=== PATIENT | female | born 1990 | race Caucasian/White ===

== ENCOUNTER 2017-09-03 16:00 | Outpatient (CLI) | payer OTHER, SELFPAY ==
[2017-09-03 16:12] VITALS: BMI 30.1
[2017-09-03 17:05] LABS: Absolute Lymphocyte Count 0.98 X10^3/ul (0.83-4.51); Absolute Neutrophil Count 12.3 X10^3/uL (2.0-7.7); Basophil# 0.01 X10^3/uL; Basophil% 0.1 % (0-1); Eosinophil# 0.01 X10^3/uL; Eosinophils% 0.1 % (0-5); Hematocrit 37.4 % (37-47); Hemoglobin 12.5 g/dl (12.0-15.0); Lymphocyte # 0.98 X10^3/ul (4.0); Mean Corp Hgb Conc 33.4 g/gl (32-36); Mean Corpuscular Hgb 29.4 pg (27.0-32.0); Mean Platelet Vol. 8.7 fl (6.2-12.0); Monocyte# 0.76 X10^3/uL; Monocyte% 5.4 % (0-10); Neutrophil # 12.31 X10^3/uL (2.7-7.7); Neutrophil % 87.2 % (47-70); Platelet Count 214 K/mm3 (150-450); RBC Distribution Width CV 12.8 % (11.6-14.6); Red Blood Count 4.25 M/mm3 (4.2-5.4); White Blood Count 14.1 K/mm3 (4.4-11.0)
[2017-09-03 17:08] LABS: POSITIVE COUNT NO; POSITIVE DIFFERENTIAL NO; POSITIVE MORPHOLOGY NO
[2017-09-03 17:31] LABS: ALB/GLOB Ratio 0.7 RATIO (0.9-2.4); AST(SGOT) 30 U/L (15-37); Alanine Aminotransfer ALT/SGPT 32 U/L (13-56); Albumin, Serum 2.7 g/dL (3.2-5.0); Alkaline Phosphatase 65 U/L (45-117); Anion Gap 9 (5-15); BUN 6 mg/dL (7-18); BUN/Creat Ratio 10.5 RATIO (10-20); Calcium,Total 8.7 mg/dL (8.5-10.1); Chloride 106 mmol/L (98-107); Creatinine, Serum 0.57 mg/dL (0.55-1.02); EST Glomerular Filtration Rate 135 mL/min (>60); Est Glom Filt Rate - Afr Amer 164 mL/min (>60); Estimated Creatinine Clearance 124.81 ml/min; Glucose 83 mg/dL (70-110); Potassium 3.1 mmol/L (3.5-5.1); Protein, Total 6.7 g/dL (6.4-8.2); Sodium Level 140 mmol/L (136-145)
--- NOTE | 2017-09-03 17:32 | CT_ITS ---
STUDY: CT ABDOMEN AND PELVIS WITH CONTRAST REASON FOR EXAM: Female, 26 years old. Right lower quadrant pain, 34 weeks RADIATION DOSAGE (If Supplied By Facility): CTDIvol = ( 11.58 ) mGy, DLP = ( 586.68 ) mGycm TECHNIQUE: Transaxial images were obtained from the dome of the diaphragm to the symphysis pubis without oral contrast. 100 ml of Isovue 300 contrast was administered. Sagittal and coronal images were reconstructed. Individualized dose optimization techniques were used for this CT. COMPARISON: None. FINDINGS: The visualized lung bases are unremarkable. The visualized portions of the heart are within normal limits. Normal liver. Normal gallbladder and extrahepatic biliary system. Normal spleen. Normal pancreas. Normal bilateral adrenal glands. Normal right kidney. Normal left kidney. Normal visualized stomach. Normal small intestine. Normal colon. The appendix does not fill with contrast and it appears to be slightly dilated measuring 8 mm in size. There is no appreciable thickening of the cerna or stranding in the adjacent fat however the possibility of early changes of acute appendicitis cannot be excluded Normal abdominal aorta. Normal inferior vena cava. Normal retroperitoneum. The uterus is enlarged demonstrating intrauterine gestation with fetus in breech presentation.. The placenta is anterior and fundal to the left of the midline. The bladder is compressed and the bowel is displaced laterally and superiorly Normal abdominal wall. Normal osseous structures. CT/Abdomen/Pelvis WITH Contrast IMPRESSION: Findings which may be consistent with early changes of acute appendicitis in association with third trimester . Clinical correlation is recommended N.B. : The above information has been verbally conveyed by Fercho Amin MD to Dr. Latesha Leary, Referring Physician, on 09/03/2017 20:45:54 (ET). Electronically Signed: Fercho Amin MD at 20:46 EST , Service support , N.B. : The above information has been verbally conveyed by Fercho Amin MD to Dr. Latesha Leary, Referring Physician, on 09/03/2017 20:45:54 (ET).
--- NOTE | 2017-09-03 17:37 | PCM.HP.OB ---
History Date of Admission: 09/03/17 Gestational age: 35 History of this : 26-year-old 3 para 1 at 34+ gestational weeks presents from walk-in clinic today. 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 She complains of not feeling well since early this morning. Pain more on her right side and mid abdomen. She has had intermittent epigastric pain and indigestion but that is not particularly worse today. She has not eaten since breakfast. She denies any diarrhea or constipation or emesis. She has some mild nausea. She states she would eat. She reports good movement but does have some pain with movement. She feels some irregular mild cramping but no regular strong contractions. She denies any gross vaginal bleeding or leaking of fluid. She denies any fevers or chills. Family has recently had respiratory infections but that seems to have improved before this started. Obstetrical history 2 previous vaginal deliveries, current uncomplicated to date per patient Allergies No Known Allergies Allergy (Verified 11/29/15 22:20) Review of Systems Constitutional: Reports: Malaise. Denies: Chills, Fever Eyes: Reports: Vision Change - some scotoma. Denies: Blurred vision HEENT: Denies: Head Aches Cardiovascular: Denies: Chest Pain, Chest Pressure, Edema Respiratory: Denies: Cough Genitourinary: Denies: Dysuria, Frequency, Hematuria Skin: Denies: Rash, Skin Changes Physical Exam General: Alert, Cooperative, No apparent distress Cardiovascular: Regular rate Lungs: Normal air movement Abdomen: Soft, Non-Distended, Gravid, Guarding - moderate right mid abdomen, Appropriate for Gestational Age, - - no fundal tenderness Extremities:: No edema Estimated gestational size: Appropriate for gestational size Presentation: Cephalic Cervix Dilation (cm): 0 - posterior, medium consistency Station: -3 Effacement (%): 40 Assessment/Plan NST- normal baseline, moderate variability, + accels, no Decelerations, Reactive, category 1, irreg. mild ctxs a/p 26 YOF # 34 + weeks w/ acute onset abdominal pain and elevated WBC d/ wher recommend CT for r/o appendicitis. R/B/A to radiations exposure reviewed, risk of ruptured appendix is greater than risk of radiation. She consents and agrees. NST reactive. No evidence of chorio, no pain w/ palpation of fundus other than on right. No signif. rebound but some guarding. No evidence of PTL. No flank pain c/w kidney stone. Will send UA.
[2017-09-03] MEDS: 0.9% Saline Lock 10 ML Syringe IV ×3 (17:50→23:03)
--- NOTE | 2017-09-03 17:52 | HP.PCM_ITS ---
History Date of Admission: 09/03/17 Gestational age: 34 History of this : 26-year-old 3 para 1 at 34+ gestational weeks presents from walk-in clinic today. She gets her metrical care from hand hide stretcher and plans to deliver at birthing center. She complains of not feeling well since early this morning. Pain more on her right side and mid abdomen. She has had intermittent epigastric pain and indigestion but that is not particularly worse today. She has not eaten since breakfast. She denies any diarrhea or constipation or emesis. She has some mild nausea. She states she would eat. She reports good movement but does have some pain with movement. She feels some irregular mild cramping but no regular strong contractions. She denies any gross vaginal bleeding or leaking of fluid. She denies any fevers or chills. Family has recently had respiratory infections but that seems to have improved before this started. Obstetrical history 2 previous vaginal deliveries, current uncomplicated to date per patient Allergies No Known Allergies Allergy (Verified 11/29/15 22:20) Review of Systems Constitutional: Reports: Malaise. Denies: Chills, Fever Eyes: Reports: Vision Change - some scotoma. Denies: Blurred vision HEENT: Denies: Head Aches Cardiovascular: Denies: Chest Pain, Chest Pressure, Edema Respiratory: Denies: Cough Genitourinary: Denies: Dysuria, Frequency, Hematuria Skin: Denies: Rash, Skin Changes Physical Exam General: Alert, Cooperative, No apparent distress Cardiovascular: Regular rate Lungs: Normal air movement Abdomen: Soft, Non-Distended, Gravid, Guarding - moderate right mid abdomen, Appropriate for Gestational Age, - - no fundal tenderness Extremities:: No edema Estimated gestational size: Appropriate for gestational size Presentation: Cephalic Cervix Dilation (cm): 0 - posterior, medium consistency Station: -3 Effacement (%): 40 Assessment/Plan NST- normal baseline, moderate variability, + accels, no Decelerations, Reactive , category 1, irreg. mild ctxs a/p 26 YOF # 34 + weeks w/ acute onset abdominal pain and elevated WBC d/ wher recommend CT for r/o appendicitis. R/B/A to radiations exposure reviewed, risk of ruptured appendix is greater than risk of radiation. She consents and agrees. NST reactive. No evidence of chorio, no pain w/ palpation of fundus other than on right. No signif. rebound but some guarding. No evidence of PTL. No flank pain c/w kidney stone. Will send UA.
[2017-09-03] MEDS: Nalbuphine 10 MG/ML Ampul IV (20:09)
[2017-09-03] MEDS: HYDROmorphone 1 MG/ML Syringe IV (23:03)
[2017-09-04] VITALS (14 sets, daily range): BP systolic 91–131; BP diastolic 53–83; PULSE 61–98; RESP 16–20; TEMP 36.6–37.2; O2SAT 96–100
[2017-09-04 01:21] LABS: Bacteria 0 SEEN /hpf (None Seen); Mucous, Urine 0 SEEN /hpf (<or=2+); Red Blood Cells-Urine 0 SEEN /hpf (0-5)
[2017-09-04 01:23] LABS: Color, Urine Yellow (Yellow); Glucose, Dipstick Normal (Normal); Ketone-Dipstick 150 mg/dl (Negative); Leukocyte Esterase-Dipstick 25 /ul (Negative); Nitrite-Dipstick Negative (Negative); Occult Blood-Urine 10 /ul (Negative); Protein-Dipstick 15 mg/dl (Negative); Specific Gravity, Urine 1.015 (1.002-1.030); Urine Bilirubin Dipstick Negative (Negative); Urine Clarity Clear (Clear); Urine Urobilinogen Normal (Normal)
[2017-09-04 01:28] LABS: Squamous Epithelial Cells - UA 0-5 SEEN /hpf (5-10); White Blood Cells 0-5 SEEN /hpf (0-5)
[2017-09-04] MEDS: 0.9% Saline Lock 10 ML Syringe IV ×4 (02:57→22:12)
[2017-09-04] MEDS: HYDROmorphone 1 MG/ML Syringe IV ×2 (02:57→09:59)
[2017-09-04 05:13] LABS: Absolute Lymphocyte Count 1.68 X10^3/ul (0.83-4.51); Absolute Neutrophil Count 9.6 X10^3/uL (2.0-7.7); Basophil# 0.02 X10^3/uL; Basophil% 0.2 % (0-1); Eosinophil# 0.04 X10^3/uL; Eosinophils% 0.3 % (0-5); Hematocrit 36.6 % (37-47); Hemoglobin 12.4 g/dl (12.0-15.0); Lymphocyte # 1.68 X10^3/ul (4.0); Lymphocyte % 13.6 % (19-41); Mean Corp Hgb Conc 33.9 g/gl (32-36); Mean Corpuscular Volume 88.4 fL (81-99); Mean Platelet Vol. 8.7 fl (6.2-12.0); Monocyte# 0.93 X10^3/uL; Monocyte% 7.5 % (0-10); Neutrophil # 9.61 X10^3/uL (2.7-7.7); Neutrophil % 78.1 % (47-70); Platelet Count 231 K/mm3 (150-450); RBC Distribution Width CV 12.8 % (11.6-14.6); RBC Distribution Width SD 39.6 fl (35.1-43.9); Red Blood Count 4.14 M/mm3 (4.2-5.4); White Blood Count 12.3 K/mm3 (4.4-11.0)
[2017-09-04 05:14] LABS: POSITIVE COUNT NO; POSITIVE DIFFERENTIAL NO; POSITIVE MORPHOLOGY NO
[2017-09-04] MEDS: Acetaminophen 500 MG Tablet 1000 MG PO (08:04)
[2017-09-04] MEDS: Lactated Ringers 1,000 ML 500 ML IV (08:30)
--- NOTE | 2017-09-04 08:41 | PCM.PN.OB ---
Subjective: pain better than last night but asking for more IV pain meds. Some nausea after jello. no VB/LOF. no increased ctxs. No diarrhea. Last BM yesterday normal. - Physical Exam General: Alert, Cooperative, No apparent distress Abdomen: Soft, Non-Distended, Gravid, Guarding - right mid abdomen, mild rebound, no guarding on left, Appropriate for Gestational Age Extremities: No edema Weight: 77.1 kg Body Mass Index (BMI) 30.1 Laboratory Tests Past 24 Hrs 09/03/17 09/03/17 09/04/17 16:45 16:45 01:05 WBC 14.1 H RBC 4.25 Hgb 12.5 Hct 37.4 MCV 88.0 MCH 29.4 MCHC 33.4 RDW 12.8 RDW Differential 41.0 Plt Count 214 MPV 8.7 Immature Gran % (Auto) 0.200 Neut % (Auto) 87.2 H Lymph % (Auto) 7.0 L [place] % (Auto) 5.4 Eos % (Auto) 0.1 Baso % (Auto) 0.1 Absolute Neuts (auto) 12.3 H Absolute Lymphs (auto) 0.98 Total Counted Not Reportable Sodium 140 Potassium 3.1 L Chloride 106 Carbon Dioxide 25.0 Anion Gap 9 BUN 6 L Creatinine 0.57 Estim Creat Clear Calc 124.81 Est GFR (MDRD) Af Amer 164 Est GFR (MDRD) Non-Af 135 BUN/Creatinine Ratio 10.5 Glucose 83 Calcium 8.7 Total Bilirubin 0.40 AST 30 ALT 32 Alkaline Phosphatase 65 Total Protein 6.7 Albumin 2.7 L Globulin 4.0 Albumin/Globulin Ratio 0.7 L Urine Color Yellow Urine Clarity Clear Urine pH 6.0 Ur Specific [place] 1.015 Urine Protein 15 H Urine Glucose (UA) Normal Urine Ketones 150 H Urine Occult Blood 10 H Urine Nitrite Negative Urine Bilirubin Negative Urine Urobilinogen Normal Ur Leukocyte Esterase 25 H Urine RBC 0 SEEN Urine WBC 0-5 SEEN Ur Squamous Epith Cells 0-5 SEEN Urine Bacteria 0 SEEN Urine Mucus 0 SEEN 09/04/17 04:50 WBC 12.3 H RBC 4.14 L Hgb 12.4 Hct 36.6 L MCV 88.4 MCH 30.0 MCHC 33.9 RDW 12.8 RDW Differential 39.6 Plt Count 231 MPV 8.7 Immature Gran % (Auto) 0.300 Neut % (Auto) 78.1 H Lymph % (Auto) 13.6 L [place] % (Auto) 7.5 Eos % (Auto) 0.3 Baso % (Auto) 0.2 Absolute Neuts (auto) 9.6 H Absolute Lymphs (auto) 1.68 Total Counted Not Reportable Sodium Potassium Chloride Carbon Dioxide Anion Gap BUN Creatinine Estim Creat Clear Calc Est GFR (MDRD) Af Amer Est GFR (MDRD) Non-Af BUN/Creatinine Ratio Glucose Calcium Total Bilirubin AST ALT Alkaline Phosphatase Total Protein Albumin Globulin Albumin/Globulin Ratio Urine Color Urine Clarity Urine pH Ur Specific [place] Urine Protein Urine Glucose (UA) Urine Ketones Urine Occult Blood Urine Nitrite Urine Bilirubin Urine Urobilinogen Ur Leukocyte Esterase Urine RBC Urine WBC Ur Squamous Epith Cells Urine Bacteria Urine Mucus Assessment/Plan HD#2 acute abdominal pain D/w her and that at this point WBC down, but her exam remains worrisome. CT does not show appendicitis. Will continue to monitor. Dr. Molina consulted and is concerned about patient and agrees w/ concerned observation. Does not feel clinically surgery is indicated at this point. Will give IVF bolus. Cont. IV pain meds d/w her may need LLOYD scoring for after delivery.
--- NOTE | 2017-09-04 10:11 | NURSING ---
pt requested pain med, she asked if she could only get half the dose? half dose given. pt resting in bed.
[2017-09-04] MEDS: Lactated Ringers 1,000 ML 75 ML IV (11:00)
--- NOTE | 2017-09-04 14:20 | NURSING ---
This nurse spoke to earlier around 1300, he stated he would be over to see the pt in approx an 1 to 1.5 hours. He was made aware pt is still having pain, she rates the pain a 7 when walking or when the baby moves. He is aware pt is receiving dilaudid for pain control. He states to make pt NPO. Pt given update on new orders and on the phone call. Sx called at this time and states the sx is scheduled for 1600.
--- NOTE | 2017-09-04 14:40 | CON.PCM_ITS ---
Problem List (1) RLQ abdominal pain Status: Acute Reason for Consult Date of Consultation: 09/04/17 History of Present Illness: The patient is a 26 year old F with a one day hostory of right lower quadrant pain. She is currently 34 weeks gestation. SHe noted vague abdominal pain which is now localized to the right lateral abdomen. She presented to [facility]. WBC count was 14K CT scan demonstrated a mildly distended appendix without stranding - equivocal. SHe has had persistent pain overnight. Her WBC count this am is 12K. Throught the day , her pain has persisted or worsened Past Medical History Allergies No Known Allergies Allergy (Verified 11/29/15 22:20) Home Medications: Ambulatory Orders Medication Instructions Recorded No Known/Unobtainable [No Known 04/24/17 Home Medications] Surgical History: no surgical history Smoking Status: Never smoker Review of Systems Constitutional: Reports: Anorexia. Denies: Chills, Fever, Weight Change HEENT: Denies: Head Aches, Sinus Congestion, Sinus Drainage Cardiovascular: Denies: Chest Pain, Palpitations Respiratory: Denies: Cough, Shortness of breath at rest, Sputum production Gastrointestinal: Reports: Abdominal Pain. Denies: Nausea, Vomiting Genitourinary: Denies: Dysuria Musculoskeletal: Denies: Joint Pain, Joint Tenderness Skin: Denies: Rash, Wounds Neurological: Denies: Numbness, Tingling, Focal weakness Psychiatric: Denies: Anxiety, Depression, Homicidal Ideations, Suicidal Ideations Hematologic/ Lymphatic: Denies: Easy Bruising, Easy Bleeding Patient Problems: Active and Suspected Problems RLQ abdominal pain (Acute) - Physical Exam General: Alert, Oriented x3, No apparent distress Lungs: Clear to auscultation, Normal air movement Cardiovascular: Regular rate, No murmurs Abdomen: Bowel Sounds Present, Soft, Non Tender - right paramedian,, Gravid Vital Signs Temp Pulse Resp BP Pulse Ox 98.4 F 88 18 120/60 100 09/04/17 14:24 09/04/17 14:24 09/04/17 14:24 09/04/17 14:24 09/04/17 14:24 Oxygen Delivery Method Room Air Weight: 77.1 kg Body Mass Index (BMI) 30.1 Intake and Output for Last 24 Hours 09/02/17 09/03/17 09/04/17 23:59 23:59 23:59 Output Total 200 / 200 Balance -200 / -200 Laboratory Tests Past 24 Hrs 09/03/17 09/03/17 09/04/17 16:45 16:45 01:05 WBC 14.1 H RBC 4.25 Hgb 12.5 Hct 37.4 MCV 88.0 MCH 29.4 MCHC 33.4 RDW 12.8 RDW Differential 41.0 Plt Count 214 MPV 8.7 Immature Gran % (Auto) 0.200 Neut % (Auto) 87.2 H Lymph % (Auto) 7.0 L [place] % (Auto) 5.4 Eos % (Auto) 0.1 Baso % (Auto) 0.1 Absolute Neuts (auto) 12.3 H Absolute Lymphs (auto) 0.98 Total Counted Not Reportable Sodium 140 Potassium 3.1 L Chloride 106 Carbon Dioxide 25.0 Anion Gap 9 BUN 6 L Creatinine 0.57 Estim Creat Clear Calc 124.81 Est GFR (MDRD) Af Amer 164 Est GFR (MDRD) Non-Af 135 BUN/Creatinine Ratio 10.5 Glucose 83 Calcium 8.7 Total Bilirubin 0.40 AST 30 ALT 32 Alkaline Phosphatase 65 Total Protein 6.7 Albumin 2.7 L Globulin 4.0 Albumin/Globulin Ratio 0.7 L Urine Color Yellow Urine Clarity Clear Urine pH 6.0 Ur Specific [place] 1.015 Urine Protein 15 H Urine Glucose (UA) Normal Urine Ketones 150 H Urine Occult Blood 10 H Urine Nitrite Negative Urine Bilirubin Negative Urine Urobilinogen Normal Ur Leukocyte Esterase 25 H Urine RBC 0 SEEN Urine WBC 0-5 SEEN Ur Squamous Epith Cells 0-5 SEEN Urine Bacteria 0 SEEN Urine Mucus 0 SEEN 09/04/17 04:50 WBC 12.3 H RBC 4.14 L Hgb 12.4 Hct 36.6 L MCV 88.4 MCH 30.0 MCHC 33.9 RDW 12.8 RDW Differential 39.6 Plt Count 231 MPV 8.7 Immature Gran % (Auto) 0.300 Neut % (Auto) 78.1 H Lymph % (Auto) 13.6 L [place] % (Auto) 7.5 Eos % (Auto) 0.3 Baso % (Auto) 0.2 Absolute Neuts (auto) 9.6 H Absolute Lymphs (auto) 1.68 Total Counted Not Reportable Sodium Potassium Chloride Carbon Dioxide Anion Gap BUN Creatinine Estim Creat Clear Calc Est GFR (MDRD) Af Amer Est GFR (MDRD) Non-Af BUN/Creatinine Ratio Glucose Calcium Total Bilirubin AST ALT Alkaline Phosphatase Total Protein Albumin Globulin Albumin/Globulin Ratio Urine Color Urine Clarity Urine pH Ur Specific [place] Urine Protein Urine Glucose (UA) Urine Ketones Urine Occult Blood Urine Nitrite Urine Bilirubin Urine Urobilinogen Ur Leukocyte Esterase Urine RBC Urine WBC Ur Squamous Epith Cells Urine Bacteria Urine Mucus Assessment/Plan Active and Suspected Problems RLQ abdominal pain (Acute) RLQ pain, - Ct scan equivocal, pain not improving - likely appendicitis I plan to perform a laparoscopic appendectomy. THe patient understands the risks, benefits, possible complications including labor and consents to surgery. I spoke with Dr. Leary and Dr. Garcia - will plan for monitoring. Demetrian ordered.
--- NOTE | 2017-09-04 15:11 | NURSING ---
1500 Huddle done with surgery personnel, anesthesia, and nursing staff. We discussed POC for preop, sx and post op. updated on comments from jorge and the request from anesthesia that the OB be rn corrections and ready if a stat c section is needed, Gibran stated they will be available. Henrietta is the OB rn corrections and she has been updated per
--- NOTE | 2017-09-04 15:39 | NURSING ---
in the room and has discussed sx with the pt. Anesthesia has been in and has discussed past hx and allergies and sx with the pt
--- NOTE | 2017-09-04 16:00 | APP_PTH ---
PATIENT: AMADOU PAYTON LOC: [facility] U#:[id number] AGE/SX: 26/F ROOM: RE09/03/[address]: Dr. Latesha Leary MD : 1990 BED: DIS: 09/05/2017 SPEC #: [id number] RECD: 09/05/17 08:52 STATUS: GALLITO EVERETT #: [id number] BRITTANY: 09/04/17 16:[address]: Umre Molina DEPT: SURGICAL PATHOLOGY RECD BY: Umer Garg ENTERED: 09/05/17 09:28 SP TYPE: APPENDIX OTHR DR: DO Dr. Latesha Jerez MD Tissues: Appendix, NOS Procedures: Surgery Specimen Level III HEADER OPERATION: Laparoscopic appendectomy PRE-OP DIAGNOSIS: Acute appendicitis TISSUE SUBMITTED: Appendix MICROSCOPIC DIAGNOSIS Appendix, appendectomy: Acute appendicitis. Acute serositis. AM:bart 09/06/17 MICROSCOPIC DESCRIPTION Slides are reviewed. GROSS DESCRIPTION Received is one container labeled with the patient's name and designated appendix. The specimen consists of an appendix measuring 6 cm in length and up to 1 cm in average diameter. The attached periappendiceal adipose tissue measures up to 2 cm in width. The serosa is congested. No obvious perforation is identified. The lumen is pinpoint. No fecalith is identified. Learning Development Specialist sections are submitted in one cassette. / SJ:rg 09/05/17 TC:2 CPT: 25243
[2017-09-04] MEDS: Bupivacaine Mpf 0.5% 30 ML VIAL (16:18)
--- NOTE | 2017-09-04 16:43 | PCM.OPRPT ---
Problem List (1) RLQ abdominal pain Status: Acute Report of Operation Date of Procedure: 09/04/17 Pre-Operative Diagnosis: acute appendicitis, 34 weeks gravid Post-Operative Diagnosis: acute appendicitis, 34 weeks gravid Surgery/Procedure Performed:: laparoscopic appendectomy forging die sinker: None Anesthesiologist: Tee Baumann - [id number] Specimen's removed: appendix Estimated Blood Loss (mL): 10 Fluids Replaced: 1100 Description of Procedure: The patient was brought to the operating suite. Sign in was performed verifying patient, site, procedure, position, and DVT prophylaxis with SCDs. Patient received 4.5 g Zosyn for presumed appendicitis. heart tones were monitored before, during and throughout the case by nursing from OB. Obstetricians were rapidly available if necessary. Following induction of general anesthetic. The patients abdomen was prepped and draped in the usual fashion. Timeout was performed verifying patient, site, position. the patient was positioned on a roll to avoid pressure on her inferior vena cava by the uterus and to facilitate exposure of her appendix Local anesthetic was injected below the umbilicus. Incision made and dissection carried down to the umbilical root fascia. 2 stay sutures were placed. Incision made in the fascia, the peritoneum entered under direct visualization. A 10 mm Rubio trocar was inserted and secured with the stay sutures. Pneumoperitoneum to 10 mmHg was insufflated. Visual inspection revealed a large gravid uterus as expected. The cecum was displaced superiorly and the patient was noted to have early appendicitis with no signs of purulent fluid. 2 5mm ports were placed in the right lateral area position. A window was made between the base the mesoappendix and the base of the appendix transected with the intestinal load Endo YESSI stapler at the base of the cecum. The mesoappendix was transected with a Harmonic scalpel. The appendix was placed in an Endobag and removed through the umbilical port site. An 0 PDS [id number] suture was placed around the umbilical port site defect. Pneumoperitoneum was reestablished. The appendiceal area was checked for hemostasis. 5 ports were removed under direct visualization with no signs of bleeding. Pneumoperitoneum was released. The Rubio trocar was removed. The umbilical fascial suture was secured area did skin was closed with interrupted 4-0 Monocryl subcuticular sutures. Steri-Strips and bandages were applied. The patient was brought to recovery room in stable condition. - Admit VTE Documentation VTE Present on Admission: No
--- NOTE | 2017-09-04 16:46 | OP.PCM_ITS ---
Problem List (1) RLQ abdominal pain Status: Acute Report of Operation Date of Procedure: 09/04/17 Pre-Operative Diagnosis: acute appendicitis, 34 weeks gravid Post-Operative Diagnosis: acute appendicitis, 34 weeks gravid Surgery/Procedure Performed:: laparoscopic appendectomy sales representative jewelry: None Anesthesiologist: Tee Baumann - [id number] Specimen's removed: appendix Estimated Blood Loss (mL): 10 Fluids Replaced: 1100 Description of Procedure: The patient was brought to the operating suite. Sign in was performed verifying patient, site, procedure, position, and DVT prophylaxis with SCDs. Patient received 4.5 g Zosyn for presumed appendicitis. heart tones were monitored before, during and throughout the case by nursing from OB. Obstetricians were rapidly available if necessary. Following induction of general anesthetic. The patient?s abdomen was prepped and draped in the usual fashion. Timeout was performed verifying patient, site , position. the patient was positioned on a roll to avoid pressure on her inferior vena cava by the uterus and to facilitate exposure of her appendix Local anesthetic was injected below the umbilicus. Incision made and dissection carried down to the umbilical root fascia. 2 stay sutures were placed. Incision made in the fascia, the peritoneum entered under direct visualization. A 10 mm Rubio trocar was inserted and secured with the stay sutures. Pneumoperitoneum to 10 mmHg was insufflated. Visual inspection revealed a large gravid uterus as expected. The cecum was displaced superiorly and the patient was noted to have early appendicitis with no signs of purulent fluid. 2 5mm ports were placed in the right lateral area position. A window was made between the base the mesoappendix and the base of the appendix transected with the intestinal load Endo YESSI stapler at the base of the cecum. The mesoappendix was transected with a Harmonic scalpel. The appendix was placed in an Endobag and removed through the umbilical port site. An 0 PDS figure-of- eight suture was placed around the umbilical port site defect. Pneumoperitoneum was reestablished. The appendiceal area was checked for hemostasis. 5 ports were removed under direct visualization with no signs of bleeding. Pneumoperitoneum was released. The Rubio trocar was removed. The umbilical fascial suture was secured area did skin was closed with interrupted 4 -0 Monocryl subcuticular sutures. Steri-Strips and bandages were applied. The patient was brought to recovery room in stable condition. - Admit VTE Documentation VTE Present on Admission: No
--- NOTE | 2017-09-04 18:58 | NURSING ---
Addendum entered by Morena Toro 09/04/17 19:07: strips 4 and 5 saved but not achieved. Original Note: Pt is back on the floor from sx and pacu. fhr was monitored throughout sx and was documented on strip. this strip saved not achieved, this strip is labeled #4. Pt was on O2 when brought back to the floor, pt taken off the O2 around 1830, but was put back on after a couple of minutes to help improve variablility of fhr. Pt is alert and oriented, taking ice chips.
--- NOTE | 2017-09-04 19:52 | NURSING ---
1949 This nurse spoke to new orders clarified, orders reviewed with oncoming nurse Layton SAEED
[2017-09-04] MEDS: HYDROmorphone HCL 0.5 MG/0.5 ML SYRINGE IV (20:02)
[2017-09-04] MEDS: Piperacil/Tazobactam 3.375 GM/50 ML ML IV (22:14)
[2017-09-05 01:19] VITALS: BP 97/52; PULSE 75; RESP 18; TEMP 37.1; O2SAT 95
[2017-09-05] MEDS: oxyCODONE 5 MG Tablet PO ×3 (01:26→10:43)
[2017-09-05 06:12] VITALS: BP 113/61; PULSE 70; RESP 18; TEMP 36.6; O2SAT 96
[2017-09-05] MEDS: Piperacil/Tazobactam 3.375 GM/50 ML ML IV (06:20)
[2017-09-05] MEDS: 0.9% Saline Lock 10 ML Syringe IV (06:21)
[2017-09-05 06:45] LABS: Absolute Lymphocyte Count 1.66 X10^3/ul (0.83-4.51); Basophil# 0.02 X10^3/uL; Basophil% 0.2 % (0-1); Eosinophil# 0.06 X10^3/uL; Eosinophils% 0.6 % (0-5); Hematocrit 34.4 % (37-47); Hemoglobin 11.7 g/dl (12.0-15.0); Lymphocyte # 1.66 X10^3/ul (4.0); Lymphocyte % 17.3 % (19-41); Mean Corpuscular Hgb 30.5 pg (27.0-32.0); Mean Corpuscular Volume 89.6 fL (81-99); Mean Platelet Vol. 8.5 fl (6.2-12.0); Monocyte# 0.84 X10^3/uL; Monocyte% 8.8 % (0-10); Neutrophil % 72.9 % (47-70); Platelet Count 214 K/mm3 (150-450); RBC Distribution Width CV 12.8 % (11.6-14.6); RBC Distribution Width SD 40.8 fl (35.1-43.9); Red Blood Count 3.84 M/mm3 (4.2-5.4); White Blood Count 9.6 K/mm3 (4.4-11.0)
[2017-09-05 06:50] LABS: POSITIVE COUNT NO; POSITIVE DIFFERENTIAL NO; POSITIVE MORPHOLOGY NO
[2017-09-05 06:56] LABS: Anion Gap 9 (5-15); BUN 5 mg/dL (7-18); BUN/Creat Ratio 8.8 RATIO (10-20); Calcium,Total 8.4 mg/dL (8.5-10.1); Chloride 109 mmol/L (98-107); Creatinine, Serum 0.57 mg/dL (0.55-1.02); EST Glomerular Filtration Rate 137 mL/min (>60); Est Glom Filt Rate - Afr Amer 166 mL/min (>60); Estimated Creatinine Clearance 124.81 ml/min; Glucose 86 mg/dL (70-110); Potassium 3.5 mmol/L (3.5-5.1); Sodium Level 143 mmol/L (136-145)
--- NOTE | 2017-09-05 08:06 | PCM.DC.APPY ---
Discharge Diet: Light diet - advance as tolerated Discharge Activity: May Not Drive - for 3-5 days or while taking narcotic pain meds. May shower in (days): 1 Suture Line Care: Avoid Pulling/Pushing, Avoid Pinching/Bending Additional Dressing/Incision Instructions:: Keep dressing clean and dry. Change or remove dressing in 2 days. Leave steri strips for 1 week. May protect with a gauze bandaid. Medications to take at Discharge Oxycodone [Oxyir] 5 mg PO Q4H PRN PRN 5 Days #12 tab 09/05/17 Allergies/Adverse Reactions: Allergies No Known Allergies Allergy (Verified 11/29/15 22:20) The following prescriptions were given: Oxycodone [Oxyir] 5 mg PO Q4H PRN PRN 5 Days #12 tab PRN Reason: Severe Pain (6-05/14) Primary Care Physician: Stuart Dupont MD [Primary Care Provider] - Please Follow Up With: Umer Molina MD - [phone] When: Call to make a follow up appointment in 1 week.
[2017-09-05 08:14] VITALS: BP 114/63; PULSE 86; RESP 18; TEMP 36.8; O2SAT 95
--- NOTE | 2017-09-05 11:33 | PCM.DC.SUM ---
Discharge Date and Diagnosis - Problem List Patient Problems: Active and Suspected Problems RLQ abdominal pain (Acute) Date of Admission: 09/03/17 Date of Discharge: 09/05/17 - Primary Discharge Diagnosis Active and Suspected Problems RLQ abdominal pain (Acute) appendicitis Hospital Course and Treatment Operations: appendectomy Summary of Care Provided: The patient is a 26 year old F with a one-day history of abdominal pain radiating to her right lower or right lateral abdominal area. The patient is 34 weeks gravid. She underwent a CT scan, which was equivocal for appendicitis. We elected to follow her clinically. Her symptoms failed to improve so she was taken urgently for laparoscopic appendectomy. The patient was found to have early appendicitis. Appendectomy was uneventful. heart tones were monitored throughout the case and were stable. The patient did well and was ready for discharge on postoperative day 1. Discharge Diet: Light diet - advance as tolerated Discharge Activity: May Not Drive - for 3-5 days or while taking narcotic pain meds. May shower in (days): 1 Suture Line Care: Avoid Pulling/Pushing, Avoid Pinching/Bending Additional Dressing/Incision Instructions:: Keep dressing clean and dry. Change or remove dressing in 2 days. Leave steri strips for 1 week. May protect with a gauze bandaid. Home Medications: Medications to take at Discharge Oxycodone [Oxyir] 5 mg PO Q4H PRN PRN 5 Days #12 tab 09/05/17 Following Prescrptions Were Given to Patient: Oxycodone [Oxyir] 5 mg PO Q4H PRN PRN 5 Days #12 tab PRN Reason: Severe Pain (6-10/10) Primary Care Physician: Stuart Dupont MD [Primary Care Provider] - Please Follow Up With: Umer Molina MD - [phone] When: Call to make a follow up appointment in 1 week. Meaningful Use Info Meaningful Use Diagnoses (Choose all that apply): None applicable
--- NOTE | 2017-09-05 12:04 | PCM.PN.OB ---
Patient Problems: Active and Suspected Problems RLQ abdominal pain (Acute) Subjective: No N/V. Yanira. regular diet. No regular ctxs. Good FM. No VB/LOF. Pain improving. - Physical Exam General: Alert, Cooperative, No apparent distress Abdomen: Soft, Non-Distended, Tender - appropriately Extremities: Edema - 1+ Skin: Incision - bandages clean, dry adn intact Vital Signs Temp Pulse Resp BP Pulse Ox 98.2 F 86 18 114/63 95 09/05/17 08:14 09/05/17 08:14 09/05/17 08:14 09/05/17 08:14 09/05/17 08:14 Oxygen Flow Rate 4 Oxygen Delivery Method Room Air Weight: 77.1 kg Body Mass Index (BMI) 30.1 Intake and Output for Last 24 Hours 09/03/17 09/04/17 09/05/17 23:59 23:59 23:59 Intake Total 3068 / 3068 250 / 250 Output Total 900 / 900 1250 / 1250 Balance 2168 / 2168 -1000 / -1000 Microbiology Past 72 Hours 09/04/17 01:05 Urine Culture - Final Urine, Clean Catch Mixed Gram Positive Organisms Laboratory Tests Past 24 Hrs 09/03/17 09/05/17 09/05/17 17:50 06:30 06:30 WBC 9.6 RBC 3.84 L Hgb 11.7 L Hct 34.4 L MCV 89.6 MCH 30.5 MCHC 34.0 RDW 12.8 RDW Differential 40.8 Plt Count 214 MPV 8.5 Immature Gran % (Auto) 0.200 Neut % (Auto) 72.9 H Lymph % (Auto) 17.3 L Kidder % (Auto) 8.8 Eos % (Auto) 0.6 Baso % (Auto) 0.2 Absolute Neuts (auto) 7.0 Absolute Lymphs (auto) 1.66 Total Counted Not Reportable Sodium 143 Potassium 3.5 Chloride 109 H Carbon Dioxide 25.0 Anion Gap 9 BUN 5 L Creatinine 0.57 Estim Creat Clear Calc 124.81 Est GFR (MDRD) Af Amer 166 Est GFR (MDRD) Non-Af 137 BUN/Creatinine Ratio 8.8 L Glucose 86 Calcium 8.4 L Blood Type A POSITIVE Antibody Screen NEGATIVE Assessment/Plan Active and Suspected Problems RLQ abdominal pain (Acute) A/p POD#1 34 weeks, s/p appendectomy, doing well d/c home kick counts PTL precautions.
--- NOTE | 2017-09-05 12:34 | NURSING ---
Awaiting lunch and will leave via wheelchair with .
== END 2017-09-05 13:25 | disposition home or self-care (01) ==
LOC: WPOUT 16:12 → WP 16:12
PROVIDERS: Surgery; Family Provider Family Medicine; PCP Family Medicine; Visit Provider Obstetrics & Gynecology
PROC: 0DTJ4ZZ Resection of Appendix, Percutaneous Endoscopic Approach (ICD-10-PCS; CPT 44970; principal; 2017-09-04 15:40)
DX: O26.893 Other specified pregnancy related conditions, third trimester (principal); K35.3 Acute appendicitis with localized peritonitis; Z3A.34 34 weeks gestation of pregnancy
CPT/HCPCS: 44970; 96361; 96365; 96366 ×2; 96375 ×2; 36415; 59025; 59050; 74177; 80048; 80053; 81001; 85025; 86850; 86900; 87086; 87088; 88304; 99218; J7120; Q9967; A4216; G0378; J2405; J3490

== ENCOUNTER 2021-05-30 23:15 | Inpatient (IN) | payer SELFPAY, OTHER ==
[2021-05-30 23:37] VITALS: TEMP 36.6
[2021-05-30 23:43] VITALS: O2SAT 82
[2021-05-30 23:44] VITALS: BP 116/82; PULSE 89
[2021-05-30 23:46] VITALS: PULSE 93; O2SAT 96
[2021-05-30 23:49] VITALS: BMI 32.5
[2021-05-30 23:51] VITALS: PULSE 86; O2SAT 97
[2021-05-30] MEDS: Lactated Ringers 1,000 ML 200 ML IV (23:55)
[2021-05-30 23:56] VITALS: PULSE 83; O2SAT 99
[2021-05-31] VITALS (17 sets, daily range): BP systolic 113–142; BP diastolic 62–88; PULSE 65–91; RESP 16; TEMP 36.4–36.6; O2SAT 95–98
[2021-05-31 00:12] LABS: Absolute Lymphocyte Count 1.83 X10^3/uL (0.83-4.51); Absolute Neutrophil Count 10.1 X10^3/uL (2.0-7.7); Basophil# 0.03 X10^3/uL; Basophil% 0.2 % (0-1); Eosinophil# 0.06 X10^3/uL; Eosinophils% 0.5 % (0-5); Hematocrit 42.7 % (37-47); Hemoglobin 14.3 g/dL (12.0-15.0); Lymphocyte # 1.83 X10^3/ul (0.83-4.51); Lymphocyte % 14.3 % (19-41); Mean Corp Hgb Conc 33.5 g/dL (32-36); Mean Corpuscular Hgb 28.9 pg (27.0-32.0); Mean Corpuscular Volume 86.3 fL (81-99); Mean Platelet Vol. 9.3 fl (6.2-12.0); Monocyte# 0.73 X10^3/uL; Monocyte% 5.7 % (0-10); NRBC Flagged by Analyzer 0 % (0-5); Neutrophil # 10.08 X10^3/uL (2.7-7.7); Neutrophil % 78.9 % (47-70); Platelet Count 246 K/mm3 (150-450); RBC Distribution Width CV 12.5 % (11.6-14.6); RBC Distribution Width SD 39.1 fl (35.1-43.9); Red Blood Count 4.95 M/mm3 (4.2-5.4); White Blood Count 12.8 K/mm3 (4.4-11.0)
--- NOTE | 2021-05-31 00:25 | HP.PCM.OB_ITS ---
HPI - General General Date of Admission: 05/30/21 HPI Narrative AMADOU PAYTON, is a 30 F who presents IAL with prolonged ROM. has been managed by a CPM in the [facility]. She denies any vaginal bleeding and admits good movement, clear loss of fluid. Maternal Data Information LISHA Calculator Estimated Delivery Date Method Current WG Current Estimate 06/01/21 Manual 39w 6d based on lm p and US PFSH PFSH Home Medications aloe vera mg PO DAILY 05/31/21 [History Last Taken 05/30/21] cholecalciferol (vitamin D3) [Vitamin D3] 25 mcg PO DAILY 05/31/21 [History Last Taken 05/30/21] lactobacillus combo no.6 [Probiotic Complex] cell PO 05/31/21 [History Last Taken 05/30/21] omega-3 fatty acids [[place] 3 Fish Oil] 500 mg PO DAILY 05/31/21 [History Last Taken 05/30/21] [id number] [] tab PO DAILY 05/31/21 [History Last Taken 05/30/21] Allergy/AdvReac Type Severity Reaction Status Date / Time No Known Allergies Allergy Verified 05/31/21 00:22 Social History Smoking Status: Never smoker Visit Details Expected Delivery Route/Plan OB Flowsheet Initial Weight: Not Recorded Date -?-?-?-?-?-?-?-?-?-?-?-?- EGA Weight BP Urine Prot -?-?-?-?-?-?-?-?-?-?-?-?- Glucose FHR FuHt Pres Dilation -?-?-?-?-?-?-?-?-?-?-?-?- Effaced St Visit Note 05/30/21 -?-?-?-?-?-?-?-?-?-?-?-?- 39w 5d 183 lb 6.4 oz 116/82 -?-?-?-?-?-?-?-?-?-?-?-?- -?-?-?-?-?-?-?-?-?-?-?-?- NST FHR Rate Baby A Baseline: 140 Variability:: Moderate Accelerations:: 15 x 15 Decelerations:: None NST Reactive:: Yes FHR Category:: Category I Uterine Activity:: q3-5 ROS Constitutional Constitutional: Reports systems reviewed and no addt'l complaints, except as documented ENT HEENT: Reports systems reviewed and no addt'l complaints, except as documented Cardiovascular Cardiovascular: Reports systems reviewed and no addt'l complaints, except as documented Respiratory/Chest Respiratory/Chest: Reports systems reviewed and no addt'l complaints, except as documented Gastrointestinal Gastrointestinal: Reports systems reviewed and no addt'l complaints, except as documented and nausea; Denies abdominal pain Genitourinary Genitourinary: Reports systems reviewed and no addt'l complaints, except as documented, contractions Details: present and frequency (regular ) and movement Details: present Musculoskeletal Musculoskeletal: Reports systems reviewed and no addt'l complaints, except as documented Integumentary Integumentary: Reports as per HPI Neurologic Neurologic: Reports systems reviewed and no addt'l complaints, except as documented Endocrine Endocrinology: Reports systems reviewed and no addt'l complaints, except as documented Vital Signs Vital Signs Vital Signs: 05/30/21 23:37 05/30/21 23:43 05/30/21 23:44 Temperature 97.8 F Temperature Source Temporal Pulse Rate 89 Blood Pressure 116/82 H BP Systolic 116 BP Diastolic 82 Pulse Ox 82 05/30/21 23:46 05/30/21 23:51 05/30/21 23:56 Temperature Temperature Source Pulse Rate 93 86 83 Blood Pressure BP Systolic BP Diastolic Pulse Ox 96 97 99 Weight Weight: 183 lb 6.4 oz Body Mass Index (BMI) 32.5 Physical Exam Const alert, oriented x3 and healthy appearing Constitutional Narrative: uncomfortable with contractions HEENT normocephalic and moist oral mucous membranes Head and Scalp: atraumatic Neck full ROM, no lymphadenopathy, supple and thyroid normal General: trachea midline Thyroid: thyroid normal Lymph Lymphatic: no lymphadenopathy noted Chest inspection of chest normal Resp normal respiratory effort Cardio regular rate GI normal to inspection, nondistended, normoactive bowel sounds, soft to palpation and non-tender Inspection: gravid external exam normal Bimanual Exam - Vag & Uterus: uterus non-tender Manual OB Exam: estimated gestational size appropriate, presentation cephalic, dilated, effaced and station Extremity normal to inspection General Extremity: Negative for edema Skin no rashes or lesions noted Neuro deep tendon reflexes 2+ bilaterally Motor Exam: strength 5/5 throughout and clonus absent Psych mental status grossly normal Labs Labs Labs: Blood Type A POSITIVE Antibody Screen NEGATIVE Hct 42.7 % (37-47) Hgb 14.3 g/dL (12.0-15.0) Syphilis Total Ab Pending Rubella IgG Antibody Pending Hep Bs Antigen Pending HIV 1&2 Antibody Pending Group B Strep DNA Pending Assessment & Plan (1) : COMMENT: Cal previous home births, care by Wendy at [facility] (2) Prolonged rupture of membranes, greater than 24 hours, delivered, current hospitalization: PLAN: Admit in active labor for bag ruptured and if no cervical change in 1 hour we will start Pitocin. Penicillin started for prolonged rupture membranes and unknown GBS status. Rapid GBS sent.
[2021-05-31] MEDS: Lactated Ringers 500 ML 999 ML IV (00:34)
[2021-05-31] MEDS: Oxytocin 30 units/NS 500 ml 30 UNITS/500 ML IV.SOLN 334 UNITS IV (00:52)
--- NOTE | 2021-05-31 00:59 | EX.PCM.OBRPT ---
Maternal Data Information LISHA Calculator Estimated Delivery Date Method Current Current Estimate 06/01/21 Manual 39w 6d based on lmp and US Vaginal Delivery Operative Information Pre-Operative Diagnosis: IAL Post-Operative Diagnosis: same Surgery / Procedure Performed: Spontaneous Vaginal Delivery Type of Anesthesia: Epidural Special Medications: none Estimated Blood Loss: 100 Fluids Replaced: crystalloid Findings Description of Procedure: Patient began pushing and delivered the head in the [ROCHELLE] presentation. The head was delivered atraumatically [and a loose nuchal cord ?1 was identified and the delivered through without complication]. The anterior and posterior shoulders delivered without complication followed by the rest of the infant and the infant was placed on the maternal abdomen. Delayed cord clamping was employed for approximately 60 seconds. Cord was clamped and cut and gentle traction was applied to the cord and the placenta delivered spontaneously immediately following it was noted to be intact with three-vessel cord. The perineum and vagina were inspected and [noted to have no laceration]. EBL was [100 cc]. Patient and tolerated delivery well. Presentation: ROCHELLE Amniotic Membrane Rupture Type: Artificial Amniotic Fluid Description: Clear Placental Delivery Description: Spontaneous Placenta Disposition: [facility] Cord Vessel Description: 3 Vessels Cord Entanglement: None Delayed Cord Clamping: Yes Post Vaginal Delivery Medications Given After Delivery: IV Pitocin Episiotomy Description: None Laceration: None Complication Complications: None Procedures Urinary/Genital [id number]: [id number] Vaginal Delivery+ Care([facility])
--- NOTE | 2021-05-31 01:01 | PCM.DC ---
Discharge Instructions Diet Discharge Diet: No restrictions Activity Discharge Activity: Return to Normal Activity, May Not Drive (while taking narcotic pain medications.) and May Shower May resume sexual activity in: 4-6 weeks Dressing / Incision Call your doctor if your incision/area has: Continuous Slow Oozing, Sudden Increased Bleeding, Increased Pain/ Swelling, Increased Redness and Foul Smelling Discharge Follow Up Care Please Follow Up With: Jeanna Maria MD When: Call [phone] to make an appointment with your doctor in 6 weeks. If you had elevated blood pressure or 4th degree laceration, you will need to be seen in 2 weeks. Test Results: Test results from this visit will be discussed in further detail at your follow-up appointment, if applicable. Discharge Plan Admission Admit Date/Time: 05/30/21 23:15 Primary Reason for Your Visit: vaginal delivery Attending Provider: Jeanna Maria Primary Care Provider: Stuart Dupont Discharge Orders/Prescriptions Prescriptions: No Action 1 mg Tablet PO DAILY RF: 0 cholecalciferol (vitamin D3) [Vitamin D3] 25 mcg (1,000 unit) Capsule 25 mcg PO DAILY RF: 0 [place] 3 Fish Oil Capsule 500 mg PO DAILY RF: 0 aloe vera 500 mg Capsule PO DAILY RF: 0 Probiotic Complex 4 billion cell Tablet PO RF: 0 Referrals / Follow Up: Stuart Dupont DO [Primary Care Provider] - Disposition Disposition (needs filled in before D/C Order can be placed): Home, Self Care
[2021-05-31 01:09] LABS: Rubella IgG Reactive (Nonreactive); Syphilis Antibodies Non-reactive
[2021-05-31 01:32] LABS: HIV - WCH Non-Reactive (Nonreactive); Hepatitis B Surface Antigen Non-Reactive (Nonreactive); Hepatitis C Antibody Non-Reactive (Nonreactive)
[2021-05-31] MEDS: Naproxen 500 MG Tablet PO (02:19)
[2021-05-31 02:55] LABS: Group B Strep DNA By PCR Negative (Negative)
[2021-05-31 02:56] LABS: Internal Control PASS; Probe Check PASS; Specimen Processing Control PASS
--- NOTE | 2021-05-31 13:38 | NURSING ---
pt discharged to [facility] birthing center to be back under calender operator care.
== END 2021-05-31 12:05 | disposition home or self-care (01) | DRG 807 ==
PROVIDERS: Admitting Provider Obstetrics & Gynecology; PCP Family Medicine; Visit Provider Obstetrics & Gynecology
DX: O42.12 Full-term premature rupture of membranes, onset of labor more than 24 hours following rupture (principal); Z37.0 Single live birth; Z3A.39 39 weeks gestation of pregnancy; O69.81X0 Labor and delivery complicated by cord around neck, without compression, not applicable or unspecified
CPT/HCPCS: 59025; 59050; 85025; 86703; 86762; 86780; 86803; 86850; 86900; 86901; 87081; 87340; 87426; 87653; 99218; J7120; G0378

== ENCOUNTER 2023-06-08 13:25 | Emergency (ER) | payer OTHER, SELFPAY ==
[2023-06-08 13:26] VITALS: BP 124/74; PULSE 103; RESP 18; TEMP 36.6; O2SAT 100; BMI 29.9
--- NOTE | 2023-06-08 13:54 | US_ITS ---
EXAM: US , TRANSVAGINAL CLINICAL INDICATION: vaginal bleeding TECHNIQUE: Real-time endovaginal obstetrical ultrasound of the maternal pelvis and a first trimester with image documentation. Transvaginal imaging was used for better evaluation of the fetus and adnexa. COMPARISON: No relevant prior studies available. FINDINGS: UTERUS/CERVIX: Uterus measures 8.9 x 5.6 x 5.2 cm with endometrial thickness of 16 mm. No evidence of intra or extrauterine gestational sac. Prominent parametrial vessels noted which may represent pelvic venous insufficiency. OVARIES: Normal. No mass. The right ovary measures 3.0 x 3.0 x 2.2 cm. The left ovary measures 3.1 x 2.6 x 2.2 cm. FREE FLUID: No free fluid. US/Transvaginal w/Preg US IMPRESSION: 1. No evidence of intra or extrauterine gestational sac. 2. Recommend follow-up ultrasound of the pelvis in 7-10 days if HCG titers are positive in order to further evaluate for viable intrauterine gestation, ectopic or miscarriage. Electronically Signed: Jb Russell MD at 15:44 EDT ,
--- NOTE | 2023-06-08 14:05 | ED.VIS.FEGU ---
HPI <Dr. Michael Keita DO - Last Filed: 06/08/23 14:06> HPI - Female History of Present Illness Chief Complaint: Vag Bld, Preg <DANIEL Zee - Last Filed: 06/08/23 16:04> HPI - Female Narrative Narrative: Patient is a 32-year-old female who is a 5 para 4, 0, who presents to the emergency department for vaginal bleeding. Patient believes she is 7 to 8 weeks . Her last menstrual cycle was 8 weeks ago however she is irregular. She states that she did take a test and it was positive. She complains of brown vaginal discharge for the last 3 weeks, the last 3 days, she states it was bright red and getting more heavy, she is also having more cramping. She is here for evaluation. She denies any back pain, nausea or vomiting. [facility] <Dr. Michael Keita DO - Last Filed: 06/08/23 14:06> [facility] Medical History (Updated 06/08/23 @ 16:01 by DANIEL Zee) Depression Fatigue Gestational diabetes Gluten intolerance Hypotension Irregular heart rate Prolonged rupture of membranes, greater than 24 hours, delivered, current hospitalization SOB (shortness of breath) Vaginal delivery Home Medications aloe vera 500 mg capsule mg PO DAILY 05/31/21 [History Last Taken 05/30/21] cholecalciferol (vitamin D3) 25 mcg (1,000 unit) capsule (Vitamin D3) 25 mcg PO DAILY 05/31/21 [History Last Taken 05/30/21] lactobacillus combo no.6 4 billion cell tablet cell PO 05/31/21 [History Last Taken 05/30/21] omega-3 fatty acids 500 mg PO DAILY 05/31/21 [History Last Taken 05/30/21] Allergy/AdvReac Type Severity Reaction Status Date / Time No Known Allergies Allergy Verified 06/08/23 13:26 Surgical History Hx of appendectomy Social History Smoking Status: Never smoker ROS <DANIEL Zee - Last Filed: 06/08/23 16:04> ROS ED ROS Narrative Constitutional: Negative for fever, chills, weight loss, weakness Eyes: Negative for vision loss, vision change, double vision ENT: Negative for any sore throat, ear pain, congestion Cardiovascular: Negative for any chest pain, tightness, palpitations Respiratory: Negative for any cough, sputum production, hemoptysis, dyspnea, dyspnea on exertion, orthopnea Gastrointestinal: Negative for any abdominal pain, nausea, vomiting, diarrhea, constipation, blood in stool, blood in vomit : Negative for any urinary frequency, dysuria, retention, blood in urine. Positive vaginal bleeding, lower abdominal cramps Muscle skeletal: Negative for any muscle joint pain, stiffness, myalgias, arthralgias, neck pain, back pain Neurological: Negative for any headache, syncope, numbness or tingling, dizziness Skin: Negative for any rashes, lumps, itching, abrasions, lacerations Psychiatric: Negative for any depression, anxiety, stress, suicidal ideation, homicidal ideation Hematologic: Negative for any easy bruising, excessive bruising, easy bleeding Allergies: Negative for any eczema, hives, rash EXAM <Dr. Michael Keita DO - Last Filed: 06/08/23 14:06> Physical Exam Const Vital Signs: 06/08/23 13:26 Temperature 97.8 F Temperature Source Temporal Pulse Rate 103 H Respiratory Rate 18 Blood Pressure 124/74 H Blood Pressure Mean 90 Pulse Ox 100 Oxygen Delivery Method Room Air <DANIEL Zee - Last Filed: 06/08/23 16:04> Physical Exam Narrative Exam Narrative: Vital signs reviewed. HEET: Head normocephalic atraumatic, TMs clear bilaterally. Posterior pharynx is clear, moist mucous membranes. Nares clear bilaterally. Neck: Supple with no lymphadenopathy or tenderness. No signs of meningismus, negative jolt sign. Cardiac: Regular rate and rhythm no murmurs gallops or rubs, equal peripheral pulses bilaterally. Respiratory: Lungs clear to auscultation bilaterally. No chest tenderness. Abdomen: Soft, nontender, nondistended. No abdominal bruit or pulsatile masses. No hepatosplenomegaly Extremities: No peripheral edema, no signs of gross trauma or deformity. Active full range of motion of all extremities. Neuro: Cranial nerves II through XII intact, no focal neurological deficits. Skin: Clean dry and intact with no rash, purpura, petechiae, vesicles or pustules. Backs/flank: No CVA tenderness, no midline spinal tenderness, no deformity. Psych: Normal mood and affect. No SI, HI or acute psychosis. Const Vital Signs: 06/08/23 13:26 Temperature 97.8 F Temperature Source Temporal Pulse Rate 103 H Respiratory Rate 18 Blood Pressure 124/74 H Blood Pressure Mean 90 Pulse Ox 100 Oxygen Delivery Method Room Air Positive well nourished and well developed General Appearance ED: well developed MDM <Dr. Michael Keita, DO - Last Filed: 06/08/23 14:06> MDM MDM Narrative Medical decision making narrative: I have personally performed a face to face assessment of the patient and have reviewed the BRYAN Note. I performed a substantive portion of the visit including all aspects of the following. My urrutia findings include: History is [patient presents to the emergency department with vaginal bleeding and . Patient states that she took a test 3 days ago that was positive. Patient had been having small amount of spotting for about 2 weeks prior to that. Over the last day or 2 she had increased bleeding where she bled through a pad and a half yesterday. She is having small amount of cramping. She is not passing any clots. She is G5, P4. Patient has history of polycystic ovarian disease.] Exam is [HEENT-PERRLA, EOMI. Cranial nerves II through XII grossly intact. TMs clear. Mucous membranes moist. No adenopathy. Cardiovascular-regular rate and rhythm without murmur or ectopy Lungs-clear to auscultation, chest wall stable without crepitus or subcu emphysema Abdomen-normoactive bowel sounds, soft, nontender, no rebound or rigidity, no peritoneal signs. Extremities-intact ?4, normal range of motion, normal pulses, atraumatic] Medical Decison Making [ ] Other additions or changes: [None] Lab Data Labs: Laboratory Results - last 24 hr 06/08/23 06/08/23 14:37 14:59 WBC 6.8 RBC 4.84 Hgb 14.3 Hct 42.8 MCV 88.4 MCH 29.5 MCHC 33.4 RDW Std Deviation 38.5 RDW Coeff of Burak 12.0 Plt Count 274 MPV 8.8 Immature Gran % (Auto) 0.400 Neut % (Auto) 68.5 Lymph % (Auto) 22.4 [place] % (Auto) 7.2 Eos % (Auto) 0.9 Baso % (Auto) 0.6 Absolute Neuts (auto) 4.7 Absolute Lymphs (auto) 1.53 Nucleated RBC % 0 Sodium 140 Potassium 3.6 Chloride 108 H Carbon Dioxide 28.0 Anion Gap 4 L BUN 9 Creatinine 0.84 Estim Creat Clear Calc 80.27 Est GFR (MDRD) Af Amer 101 Est GFR (MDRD) Non-Af 83 BUN/Creatinine Ratio 10.7 Glucose 87 Calcium 9.3 HCG, Quant 65547 H Urine Color Yellow Urine Clarity Clear Urine pH 7.0 Ur Specific [place] 1.010 Urine Protein Negative Urine Glucose (UA) Normal Urine Ketones Negative Urine Occult Blood 250 H Urine Nitrite Negative Urine Bilirubin Negative Urine Urobilinogen Normal Ur Leukocyte Esterase 25 H Urine RBC 0 SEEN Urine WBC 0 SEEN Ur Squamous Epith Cells 0 SEEN Urine Bacteria 0 SEEN Urine Mucus 0 SEEN Radiography Diagnostic Testing: Clinical Impression(s) from Imaging Studies Obstetrics Ultrasound 06/08/23 13:54 IMPRESSION: 1. No evidence of intra or extrauterine gestational sac. 2. Recommend follow-up ultrasound of the pelvis in 7-10 days if HCG titers are positive in order to further evaluate for viable intrauterine gestation, ectopic or miscarriage. Electronically Signed: Jb Russell MD at 15:44 EDT , <DANIEL Zee - Last Filed: 06/08/23 16:04> [facility] Lab Data Attestation: I reviewed the patient's lab results. Labs: Laboratory Results - last 24 hr 06/08/23 06/08/23 14:37 14:59 WBC 6.8 RBC 4.84 Hgb 14.3 Hct 42.8 MCV 88.4 MCH 29.5 MCHC 33.4 RDW Std Deviation 38.5 RDW Coeff of Burak 12.0 Plt Count 274 MPV 8.8 Immature Gran % (Auto) 0.400 Neut % (Auto) 68.5 Lymph % (Auto) 22.4 [place] % (Auto) 7.2 Eos % (Auto) 0.9 Baso % (Auto) 0.6 Absolute Neuts (auto) 4.7 Absolute Lymphs (auto) 1.53 Nucleated RBC % 0 Sodium 140 Potassium 3.6 Chloride 108 H Carbon Dioxide 28.0 Anion Gap 4 L BUN 9 Creatinine 0.84 Estim Creat Clear Calc 80.27 Est GFR (MDRD) Af Amer 101 Est GFR (MDRD) Non-Af 83 BUN/Creatinine Ratio 10.7 Glucose 87 Calcium 9.3 HCG, Quant 62928 H Urine Color Yellow Urine Clarity Clear Urine pH 7.0 Ur Specific [place] 1.010 Urine Protein Negative Urine Glucose (UA) Normal Urine Ketones Negative Urine Occult Blood 250 H Urine Nitrite Negative Urine Bilirubin Negative Urine Urobilinogen Normal Ur Leukocyte Esterase 25 H Urine RBC 0 SEEN Urine WBC 0 SEEN Ur Squamous Epith Cells 0 SEEN Urine Bacteria 0 SEEN Urine Mucus 0 SEEN Radiography Diagnostic Testing: Clinical Impression(s) from Imaging Studies Obstetrics Ultrasound 06/08/23 13:54 IMPRESSION: 1. No evidence of intra or extrauterine gestational sac. 2. Recommend follow-up ultrasound of the pelvis in 7-10 days if HCG titers are positive in order to further evaluate for viable intrauterine gestation, ectopic or miscarriage. Electronically Signed: Jb Russell MD at 15:44 EDT , Treatment and Re-Evaluation Narrative: Patient appears generally well, patient appears nontoxic, vital signs are stable. Presenting to the emergency department for complaints of vaginal bleeding, 7 to 8 weeks . Patient appears to be in no obvious distress, patient is not hemorrhaging. Abdominal exam was unremarkable. Patient will receive some basic labs such as CBC, BMP, hCG quantitative. Patient received a urinalysis concern for any infection. She will receive a transvaginal ultrasound. Frontal diagnosis includes spontaneous , live , dysfunctional uterine bleeding. Patient received IV fluids. Patient remains in no distress. Patient CBC is unremarkable. Patient's chemistries are unremarkable, patient's hCG quant shows 11,473. Patient's transvaginal ultrasound shows no evidence of intra or extrauterine gestational sac. Recommend follow-up ultrasound of the pelvis in 7 to 10 days if hCG titers are positive. Secondary to this finding, I did reach out to [facility] on-call, they recommend that I write for a prescription for repeat hCG quantitative on Saturday, and the patient will follow-up this week. I did speak with the patient regarding this, everyone is in agreement. Patient understands that she needs a follow-up this week. All questions were answered, patient stable for discharge Discharge Plan Triage Chief Complaint: Vag Bld, Preg ED Midlevel Provider: Juan Manuel Downs ED Provider: Michael Keita Dx/Rx/DC Orders Clinical Impression: Abnormal vaginal bleeding, Instructions: ED , New Dx Prescriptions: No Action cholecalciferol (vitamin D3) [Vitamin D3] 25 mcg (1,000 unit) Capsule 25 mcg PO DAILY [place] 3 Fish Oil Capsule 500 mg PO DAILY aloe vera 500 mg Capsule PO DAILY Probiotic Complex 4 billion cell Tablet PO Other Ambulatory Orders: hCG Titer Quant., Serum (Stat) Timeframe: [id number] Facility: [facility] - Location: Laboratory Ordered By: Juan Manuel Downs Primary Care Provider: Stuart Dupont Referrals: Stuart Dupont DO [Primary Care Provider] - Fior Vu DO [Med Staff - Active Staff] - Activity Restrictions/Additional Instructions: Your hCG quant level is 11,473. You need to have this blood drawn again on Saturday, June 10, 2023. And you need to follow-up with [facility] [employer] [facility]. Come here to have your blood drawn. Disposition Disposition: Home, Self Care
[2023-06-08 14:42] LABS: Bacteria 0 SEEN /hpf (None Seen); Mucous, Urine 0 SEEN /hpf (<or=2+); Red Blood Cells-Urine 0 SEEN /hpf (0-5); Squamous Epithelial Cells - UA 0 SEEN /hpf (5-10); White Blood Cells 0 SEEN /hpf (0-5)
[2023-06-08 14:44] LABS: Color, Urine Yellow (Yellow); Glucose, Dipstick Normal (Normal); Ketone-Dipstick Negative (Negative); Leukocyte Esterase-Dipstick 25 /ul (Negative); Nitrite-Dipstick Negative (Negative); Occult Blood-Urine 250 /ul (Negative); Protein-Dipstick Negative (Negative); Urine Bilirubin Dipstick Negative (Negative); Urine Clarity Clear (Clear); Urine Urobilinogen Normal (Normal)
[2023-06-08] MEDS: 0.9% Normal Saline (1000mL) 1,000 ML 1000 ML IV (15:01)
[2023-06-08 15:16] LABS: Absolute Lymphocyte Count 1.53 X10^3/uL (0.83-4.51); Absolute Neutrophil Count 4.7 X10^3/uL (2.0-7.7); Basophil# 0.04 X10^3/uL; Basophil% 0.6 % (0-1); Eosinophil# 0.06 X10^3/uL; Eosinophils% 0.9 % (0-5); Hematocrit 42.8 % (37-47); Hemoglobin 14.3 g/dL (12.0-15.0); Lymphocyte # 1.53 X10^3/ul (0.83-4.51); Lymphocyte % 22.4 % (19-41); Mean Corp Hgb Conc 33.4 g/dL (32-36); Mean Corpuscular Hgb 29.5 pg (27.0-32.0); Mean Corpuscular Volume 88.4 fL (81-99); Mean Platelet Vol. 8.8 fl (6.2-12.0); Monocyte# 0.49 X10^3/uL; Monocyte% 7.2 % (0-10); NRBC Flagged by Analyzer 0 % (0-5); Neutrophil # 4.67 X10^3/uL (2.7-7.7); Neutrophil % 68.5 % (47-70); Platelet Count 274 K/mm3 (150-450); RBC Distribution Width SD 38.5 fl (35.1-43.9); Red Blood Count 4.84 M/mm3 (4.2-5.4); White Blood Count 6.8 K/mm3 (4.4-11.0)
[2023-06-08 15:26] LABS: Anion Gap 4 (5-15); BUN 9 mg/dL (7-18); BUN/Creat Ratio 10.7 RATIO (10-20); Calcium,Total 9.3 mg/dL (8.5-10.1); Chloride 108 mmol/L (98-107); Creatinine, Serum 0.84 mg/dL (0.55-1.02); EST Glomerular Filtration Rate 83 mL/min (>60); Est Glom Filt Rate - Afr Amer 101 mL/min (>60); Estimated Creatinine Clearance 80.27 ml/min; Glucose 87 mg/dL (74-106); Potassium 3.6 mmol/L (3.5-5.1); Sodium Level 140 mmol/L (136-145)
[2023-06-08 15:46] LABS: hCG Titer Quant., Serum 11473 mIU/mL (1-3)
[2023-06-08 16:18] VITALS: BP 121/64; PULSE 64; RESP 14; TEMP 36.4; O2SAT 99
--- NOTE | 2023-06-17 19:36 | PCM.HP.BLA ---
History and Physical Date of Admission: 06/17/23 32-year-old 5 para 4 female presents with follow-up of intermittent vaginal bleeding during the . She denies any abdominal pain or heavy vaginal bleeding. She was seen in the emergency room on 06 08 with an elevated hCG quant and empty uterus. She has been followed by her primary office and had a follow-up ultrasound today that revealed an empty uterus, quant over 20,000, and a left adnexal mass consistent with ectopic . Past medical history: Patient denies any major medical problems Social history: Patient denies any tobacco alcohol or drug use Past surgical history: History of appendectomy. Obstetrical history: 4 full-term vaginal deliveries without complications Review of systems: General: She denies any fevers or chills Heme: She denies any history of prolonged bleeding or easy bruising Cardiac she denies any chest pain or shortness of breath Respiratory: She denies any shortness of breath or cough Physical exam: General: Awake, alert, no acute distress Skin: Warm dry and intact Abdomen: Soft, nondistended, no rebound or guarding, no tenderness, no hernias noted Pelvic ultrasound, hCG levels, reviewed Assessment & Plan Assessment/Plan (1) Ectopic : QUALIFIERS: Location of ectopic : tubal Intrauterine status: without intrauterine Laterality: left Qualified Code(s): O00.102 - Left tubal without intrauterine PLAN: Plan Risk benefits and alternatives to surgical intervention were reviewed with the patient. Discussed with her relative contraindication for methotrexate with her hCG being so elevated and the size of the mass. Patient consented for laparoscopic left salpingectomy and removal of ectopic . Patient consented to blood products as indicated if needed during the surgery. Patient's was present for the discussion. Consent was signed.
--- NOTE | 2023-06-17 20:55 | DCINST_ITS ---
Discharge Instructions Diet Discharge Diet: No restrictions (Increase fluid intake for the next 48 hours.) Activity Return to work on:: 06/24/23 May shower in (days): 1 May resume sexual activity in: 2 weeks Additional Activity Instructions:: Ambulate often the next week after surgery. Nothing in the vagina for 5 days. Dressing / Incision Call your doctor if your incision/area has: Continuous Slow Oozing, Sudden Increased Bleeding, Increased Pain/ Swelling, Increased Redness and Foul Smelling Discharge Call your doctor if you observe: Fever of 101 or Higher Cleanse incision/area with: Soap & Water (your incisions have skin glue, it can get wet. Leave it on 10 days or until it falls off) Follow Up Care Please Follow Up With: Latesha Leary MD When: Call [phone] for follow-up appointment. Test Results: Test results from this visit will be discussed in further detail at your follow- up appointment, if applicable. Discharge Plan Triage Chief Complaint: Vag Bld, Preg ED Midlevel Provider: Juan Manuel Downs ED Provider: Michael Keita Dx/Rx/DC Orders Clinical Impression: Abnormal vaginal bleeding, Prescriptions: No Action cholecalciferol (vitamin D3) [Vitamin D3] 25 mcg (1,000 unit) Capsule 25 mcg PO DAILY [place] 3 Fish Oil Capsule 500 mg PO DAILY aloe vera 500 mg Capsule PO DAILY Probiotic Complex 4 billion cell Tablet PO Primary Care Provider: Stuart Dupont Referrals: Stuart Dupont DO [Primary Care Provider] - Fior Vu DO [Med Staff - Active Staff] - Activity Restrictions/Additional Instructions: Your hCG quant level is 11,473. You need to have this blood drawn again on Saturday, June 10, 2023. And you need to follow-up with [employer]. Come here to have your blood drawn. Disposition Disposition: Home, Self Care Discharge Date/Time: 06/08/23 16:29
--- NOTE | 2023-06-17 21:24 | PCM.OPRPT ---
Problems Associated Problem List Diagnoses (1) Ectopic : Report of Operation Date of Procedure: 06/17/23 Pre-Operative Diagnosis: left tubal ectopic Post-Operative Diagnosis: same Surgery/Procedure Performed:: laparoscopic left salpingectomy Description of Surgical Findings:: normal ovaries, uterus, cervix and vagine. Normal right fallopian tube. Left fallopian tube markedly enlarged and edemtous with clot in ampulla. Otherwise unremarkable peritoneal cavity Surgeon: Latesha Leary retail store clerk: None Type of Anesthesia: General Anesthesiologist: Bala Arias Special Medications: none Specimen's removed: left fallopian tube with ectopic Drains: none Estimated Blood Loss (mL): 5 Fluids Replaced: 800 Description of Procedure: The patient was taken to the operating room where she was prepped and draped in the dorsolithotomy position. A weighted speculum was placed in the vagina and the anterior lip of the cervix was grasped with a tenaculum. The Ebony uterine manipulator was placed and the remainder of the instruments were removed from the vagina. Attention was turned to the abdomen. All port sites were infiltrated with 0.5% Marcaine before skin incisions were made. A 5 mm intraumbilical incision was made. The anterior abdominal wall was tented up with 2 towel clamps while a 5 mm blade less trocar and sleeve were directly inserted. Intraperitoneal placement was confirmed with the laparoscope. The pneumoperitoneum was created and the underlying abdominal contents were intact. The patient was placed in Trendelenburg. Right and left lower quadrant ports were placed under direct visualization lateral to the inferior epigastric vessels. The umbilical port was converted to an 11 mm port. The bowel was swept away and the above findings were noted. The LigaSure device was used to clamp seal and transect the antimesenteric portions of the left fallopian tube to the cornual insertion of the uterus. The tube was amputated from the uterus and the pedicles were all confirmed to be hemostatic. The pedicles were again examined and found to be hemostatic. The specimen was placed in the endoscopic bag and removed for the umbilical incision. The umbilical incision was stretched slightly with a Sinai clamp to accommodate the easy removal of the specimen bag. The lateral ports were removed under direct visualization and no active bleeding was noted. The pneumoperitoneum was released. The fascia in the umbilical incision was closed with 0 Vicryl suture in a running standard fashion. The skin incisions were closed with Monocryl suture in a subcuticular fashion and skin glue. The vaginal instruments were removed and the vaginal sweep was completed by me. The procedure was performed by me with assistance. All sponge and needle counts were correct and the patient was taken to the recovery room in stable condition. Grafts/Implants Used: none Procedure Start Time: 21:04 Procedure Stop Time: 21:25 Complications none Admit VTE Documentation VTE Present on Admission: No VTE Mechan Device Prophylaxis: SCD's VTE Pharm Prophylaxis ordered?: No Reason prophylaxis not ordered:: Procedure Not Indicated
== END 2023-06-08 16:29 | disposition home or self-care (01) ==
PROVIDERS: Nurse Practitioner; Emergency Provider Emergency Medicine; PCP Family Medicine; Visit Provider Emergency Medicine
DX: O20.9 Hemorrhage in early pregnancy, unspecified (principal); Z3A.00 Weeks of gestation of pregnancy not specified
CPT/HCPCS: 76817; 80048; 81001; 84702; 85025; 99282; J7030

== ENCOUNTER → 2023-06-10 | Outpatient (CLI) | payer OTHER, SELFPAY ==
[2023-06-10 11:19] LABS: hCG Titer Quant., Serum 12690 mIU/mL (1-3)
== END | disposition home or self-care (01) ==
LOC: LAB 10:35
PROVIDERS: PCP Family Medicine; Referring Provider Nurse Practitioner; Visit Provider Nurse Practitioner
DX: Z34.90 Encounter for supervision of normal pregnancy, unspecified, unspecified trimester (principal)
CPT/HCPCS: 36415; 84702

== ENCOUNTER 2023-06-17 16:58 | Day surgery (SDC) | payer OTHER, SELFPAY ==
[2023-06-17] VITALS (10 sets, daily range): BP systolic 106–131; BP diastolic 65–93; PULSE 65–89; RESP 15–18; TEMP 36.4–37; O2SAT 96–100; BMI 29.9
--- NOTE | 2023-06-17 17:50 | ED.VIS.FEGU ---
HPI HPI - Female History of Present Illness Chief Complaint: Detail of Chief Complaint: with vaginal bleeding Informant: patient Narrative Narrative: Patient presents to the emergency department with vaginal bleeding and . Patient states that she has been having some bleeding for the last month and lower abdomen pain. She was seen by myself in the emergency department a week ago and had a ultrasound that did not show an intrauterine she had a quant of over 11,000 at that time. Patient was following up and getting repeat quant with the child specialist and today went to [facility] where she was evaluated with ultrasound again and this showed a left adnexal mass that is concerning for ectopic. Dr. Latesha Leary was contacted who called to let me know patient would be coming back to our emergency department as she may need to take patient to the OR. She asked that we obtain repeat quant and basic lab work as well as a type and screen. [facility] Medical History (Updated 06/17/23 @ 19:[address] Michael Keita, ) Depression Fatigue Gestational diabetes Gluten intolerance Hypotension Irregular heart rate Prolonged rupture of membranes, greater than 24 hours, delivered, current hospitalization SOB (shortness of breath) Vaginal delivery Home Medications aloe vera 500 mg capsule mg PO DAILY 05/31/21 [History Last Taken 05/30/21] cholecalciferol (vitamin D3) 25 mcg (1,000 unit) capsule (Vitamin D3) 25 mcg PO DAILY 05/31/21 [History Last Taken 05/30/21] lactobacillus combo no.6 4 billion cell tablet cell PO 05/31/21 [History Last Taken 05/30/21] omega-3 fatty acids 500 mg PO DAILY 05/31/21 [History Last Taken 05/30/21] Allergy/AdvReac Type Severity Reaction Status Date / Time No Known Allergies Allergy Verified 06/17/23 16:59 Surgical History Hx of appendectomy Social History Smoking Status: Never smoker ROS ROS ED Review of Systems ROS Unobtainable: other Constitutional Constitutional ED: Reports lethargy; Denies chills, fever(s), sweats or weight loss Eyes Eyes: Denies blurry vision, change in vision or diplopia ENT ENT ED: Denies rhinorrhea or sore throat Cardiovascular Cardiovascular: Denies chest pain, orthopnea or racing heartbeat Respiratory/Chest Respiratory/Chest: Denies cough, dyspnea, dyspnea on exertion, orthopnea or sputum Gastrointestinal Gastrointestinal: Denies abdominal pain, diarrhea, nausea or vomiting Genitourinary Genitourinary ED: Reports other Details: Vaginal bleeding with ; Denies dysuria, hematuria or urinary frequency Musculoskeletal Musculoskeletal: Denies arthralgias, back pain, myalgias or neck pain Integumentary Denies abscess, Abrasions or rash Neurologic Neurologic: Denies headache(s) or weakness Psychiatric Psychiatric: Denies anxiety, depression or suicidal thoughts Endocrine Endocrinology: Denies polydipsia, polyphagia or polyuria Hematologic/Lymphatic Hematologic/Lymphatic: Denies easy bleeding, easy bruising or lymphadenopathy Allergic/Immunologic Allergic/Immunologic ED: Denies mouth swelling, tongue swelling or urticaria EXAM Physical Exam Const Vital Signs: 06/17/23 16:59 06/17/23 18:58 Temperature 98.6 F Temperature Source Temporal Pulse Rate 77 Respiratory Rate 18 16 Blood Pressure 113/79 Blood Pressure Mean 90 Pulse Ox 100 Oxygen Delivery Method Room Air Positive well nourished and well developed General Appearance ED: well developed and NAD HEENT Reports TM's clear and moist mucous membranes normocephalic and atraumatic; Negative for trauma or tenderness Tympanic Membrane ED: Yes TM's clear Eyes PERRL and EOMs intact bilaterally General Eye ED: Negative for pale conjunctiva or scleral icterus Neck no lymphadenopathy, supple and no JVD General: Negative for tenderness Chest Wall inspection of chest normal and palpation of chest normal Chest: Negative for tenderness Resp normal respiratory effort and clear to auscultation bilaterally Effort and Inspection: Negative for respiratory distress or pain with movement Auscultation: Negative for rhonchi, wheezes or diminished lung sounds Cardio regular rate, regular rhythm, S1 normal heart sound, S2 normal heart sound and no murmurs Peripheral Pulses: pulses 2+ throughout GI normal to inspection, nondistended, normoactive bowel sounds, soft to palpation, non-tender, non-distended and no masses Back/Spine no CVA tenderness and no thoracic nor lumbar tenderness Extremity normal to inspection General Extremety ED: Negative for edema General Extremity: Negative for edema Neuro oriented x3, CN's II-XII intact bilaterally, no sensory deficits noted and gait normal Sensorium / Orientation: awake, alert, oriented to person, oriented to place and oriented to time Motor Exam: strength 5/5 throughout and strength abnormal Psych mental status grossly normal Skin no rashes or lesions noted and no wounds MDM MDM MDM Narrative Medical decision making narrative: Patient presents with ectopic . Dr. Latesha Leary aware of patient's presentation to the emergency department from [facility]. IV line was established. CBC with differential obtained showed a white count of 9.3 with hemoglobin of 14.9 and platelet count of 294. Quantitative hCG pending. Patient being seen in the emergency department by Dr. Latesha Leary who will take patient to operating room for definitive care. Lab Data Attestation: I reviewed the patient's lab results. Labs: Laboratory Results - last 24 hr 06/17/23 18:23 WBC 9.3 RBC 4.98 Hgb 14.9 Hct 43.7 MCV 87.8 MCH 29.9 MCHC 34.1 RDW Std Deviation 37.8 RDW Coeff of Burak 11.8 Plt Count 294 MPV 8.6 Immature Gran % (Auto) 0.200 Neut % (Auto) 67.8 Lymph % (Auto) 25.2 [place] % (Auto) 5.3 Eos % (Auto) 1.1 Baso % (Auto) 0.4 Absolute Neuts (auto) 6.3 Absolute Lymphs (auto) 2.35 Nucleated RBC % 0 Discharge Plan Triage Chief Complaint: ED Provider: Michael Keita Dx/Rx/DC Orders Clinical Impression: Ectopic Prescriptions: No Action cholecalciferol (vitamin D3) [Vitamin D3] 25 mcg (1,000 unit) Capsule 25 mcg PO DAILY [place] 3 Fish Oil Capsule 500 mg PO DAILY aloe vera 500 mg Capsule PO DAILY Probiotic Complex 4 billion cell Tablet PO Primary Care Provider: Stuart Dupont Referrals: Stuart Dupont DO [Primary Care Provider] - Disposition Disposition: Acute Care Hospital [facility]
[2023-06-17] MEDS: 0.9% Normal Saline (1000mL) 1,000 ML 1000 ML IV (18:29)
[2023-06-17 18:51] LABS: Absolute Lymphocyte Count 2.35 X10^3/uL (0.83-4.51); Absolute Neutrophil Count 6.3 X10^3/uL (2.0-7.7); Basophil# 0.04 X10^3/uL; Basophil% 0.4 % (0-1); Eosinophils% 1.1 % (0-5); Hematocrit 43.7 % (37-47); Hemoglobin 14.9 g/dL (12.0-15.0); Lymphocyte # 2.35 X10^3/ul (0.83-4.51); Lymphocyte % 25.2 % (19-41); Mean Corp Hgb Conc 34.1 g/dL (32-36); Mean Corpuscular Hgb 29.9 pg (27.0-32.0); Mean Corpuscular Volume 87.8 fL (81-99); Mean Platelet Vol. 8.6 fl (6.2-12.0); Monocyte# 0.49 X10^3/uL; Monocyte% 5.3 % (0-10); NRBC Flagged by Analyzer 0 % (0-5); Neutrophil # 6.32 X10^3/uL (2.7-7.7); Neutrophil % 67.8 % (47-70); Platelet Count 294 K/mm3 (150-450); RBC Distribution Width CV 11.8 % (11.6-14.6); RBC Distribution Width SD 37.8 fl (35.1-43.9); Red Blood Count 4.98 M/mm3 (4.2-5.4); White Blood Count 9.3 K/mm3 (4.4-11.0)
[2023-06-17 19:55] LABS: hCG Titer Quant., Serum 16181 mIU/mL (1-3)
--- NOTE | 2023-06-17 21:00 | FAL_PTH ---
PATIENT: AMADOU PAYTON [place] [facility] [place][id number] AGE/SX: 32/F ROOM: RE06/17/[address]: Dr. Latesha Leary MD : 1990 BED: DIS: 06/17/2023 SPEC #: [id number] RECD: 06/18/23 08:26 STATUS: GALLITO EVERETT #: [id number] BRITTANY: 06/17/23 21:[address]: Latesha Leary DEPT: SURGICAL PATHOLOGY RECD BY: Filomena Espinoza ENTERED: 06/18/23 10:52 SP TYPE: ECTOPIC OTHR DR: Dr. Stuart Dupont DO Tissues: ECTOPIC PREG Procedures: Surgery Specimen Level IV HEADER OPERATION: Laparoscopic removal ectopic , left salpingectomy PRE-OP DIAGNOSIS: Ectopic TISSUE SUBMITTED: Left tube and ectopic MICROSCOPIC DIAGNOSIS Left fallopian tube, salpingectomy: Intraluminal chorionic villi, decidualized stroma and trophoblastic cells (intratubal ). Benign paratubal cyst. AM:bart 06/19/2023 MICROSCOPIC DESCRIPTION Slides are reviewed. GROSS DESCRIPTION Received in fixative is one container labeled with the patient's name and designated left tube and ectopic. The specimen consists of two irregular fragments of light to dark arias soft tissue ranging in size from 2.0 to 5.0 cm. One segment appears to be a portion of fallopian tube with dilated mid portion. Serial sections reveal hemorrhagic cut surfaces. Invisible Braces Orthodontist sections are submitted in four cassettes. / AM:bart 06/18/2023 TC:5 CPT: 77728
[2023-06-17] MEDS: Bupivacaine Mpf 0.5% 30 ML VIAL (21:20)
[2023-06-17] MEDS: Acetaminophen 500 MG Tablet 1000 MG PO (22:14)
== END 2023-06-17 23:09 | disposition home or self-care (01) ==
LOC: ED 19:20 → SDC 19:39 → MS3 20:08
PROVIDERS: Emergency Provider Emergency Medicine; PCP Family Medicine; Referring Provider Obstetrics & Gynecology; Visit Provider Obstetrics & Gynecology
PROC: 10T24ZZ Resection of Products of Conception, Ectopic, Percutaneous Endoscopic Approach (ICD-10-PCS; CPT 59150; principal; 2023-06-17 20:45)
DX: O00.102 Left tubal pregnancy without intrauterine pregnancy (principal); O34.80 Maternal care for other abnormalities of pelvic organs, unspecified trimester; N83.8 Other noninflammatory disorders of ovary, fallopian tube and broad ligament
CPT/HCPCS: 58661; 00840; 84702; 85025; 86850; 86900; 86901; 88305; 99284; J7030; J2405

== ENCOUNTER → 2023-08-13 | Outpatient (CLI) | payer OTHER, SELFPAY ==
--- OUTSIDE RECORDS SUMMARY | 2023-08-13 07:49 | XMS RPT_ITS | CCD ---
Author Name Unknown Address [address] [place] [address] Organization [facility] Care Team Providers Care Gold Miner Name Role Phone Unavailable Primary Care Provider UnavailKRISTIN Boggs Attending Unavailable KRISTIN MAYES Referring Unavailable NIESHA FARRELL Consulting Unavailable [place] JHA CNM Attending Unavailable ABHIJEET, [place] DINERO Primary Care Unavailable ABHIJEET, [place] DINERO Admitting Unavailable PROVIDER, UNKNOWN Consulting Unavailable Medications Completed/Discontinued Medications Medication Drug Class(es) Dates Sig (Normalized) Sig (Original) Magnesium (1 source) MAGNESIUM ORAL T paty by mouth. 0 Active Problems Problem Classification Problem Date Documented Date Episodic/Chronic Other aftercare (1 source) Surgical follow-up; Translations: [Encounter for follow-up examination after completed treatment for conditions other than malignant neoplasm] 06-21-2023 Episodic Other complications of (3 sources) Inappropriate change in quantitative human chorionic gonadotropin (hCG) in early ; Translations: [Inappropriate change in quantitative human chorionic gonadotropin (hCG) in early ] Onset: 06-17-2023 Episodic Results Test Name Value Interpretation Reference Range Facil ity Vital Signs Date Time Vital Sign Value Performing Clinician Champ villegas 06-21-2023 14:57-0500 Body weight 76.2 kg Kristin Mayes MD Work Phone: [facility] 06-21-2023 14:57-0500 Diastolic blood pressure 72 mm[Hg] Kristin Mayes MD Work Phone: [facility] 06-21-2023 14:57-0500 Systolic blood pressure 122 mm[Hg] Kristin Mayes MD Work Phone: [facility] Encounters Encounter Date Encounter Type Care Provider Facility Start: 06-21-2023 End: 06-21-2023 ambulatory KRISTIN MAYES Facility:[facility] Start: 06-21-2023 End: 06-21-2023 Patient encounter procedure Kristin Mayes MD Work Phone: OB/Gynecology Plan of Treatment Date Care Activity Detail Author Start: 04-05-2023 Influenza vaccination Influenza Vacc ine (#1) [facility] Start: 08-05-2022 Depression Assessment Depression Ass essment [facility] Start: 10-18-2021 HPV Testing HPV Testing [facility] Start: 10-18-2012 Pap Testing Pap Testing [facility] Start: 10-18-2010 Urine microalbumin profile DTa P,Tdap,Td Vaccine (1 - Tdap) [facility] Start: 10-18-2009 Hepatitis C Screening Hepatitis C Sc reening [facility] Start: 10-18-2009 HIV Screening HIV Screening [facility] Start: 04-20-1992 Covid-19 Vaccine (#1) Covid-19 Vacci ne (#1) [facility] Start: 1991 Hepatitis B Vaccine (1 of 3 - 3-dose series) Hepatitis B Vaccine (1 of 3 - 3-dose series) [facility] Payers Date Payer Category Payer Unknown [id number] 2022 Unknown 133 1991 Unknown [id number] Social History Date Type Detail Facility Start: 06-21-2023 Tobacco smoking stat us LAIS Never smoked tobacco [facility] Start: 06-21-2023 Tobacco use and exposure Smoke less tobacco non-user [facility] Start: 06-21-2023 Alcohol intake Lifetime non-d edmond (finding) [facility] Start: 06-21-2023 History of Social function [facility] Start: 06-21-2023 Tobacco use panel [facility] National Score (1-10 0), lower number is lower risk 56 [facility] Start: 1990 Sex Assigned At Not on file [facility] Progress note 06-21-2023 Note Date & Type Note Facility 06-21-2023 Note HNO ID: [id number] Author: Kristin Mayes MD Service: ? Author Type: Physician Type: Progress Notes Filed: 06/21/2023 4:31 PM Note Text: DATE OF SERVICE: 06/21/2023 PROBLEM: Amadou Payton presents for postop visit. SURGERY AND DATE: 06/18/23 laparoscopic left salpingectomy for ectopic PATHOLOGY: Returned consistent with ectopic SUBJECTIVE/INTERVAL HISTORY: Amadou Payton reports that she feels well. No fever or chills. Pain improving daily. Normal appetite. Normal bowel movements and urination. Still having moderate amount of vaginal bleeding about enough to saturate 1 maxi pad a day.. OBJECTIVE: incisions- clean, dry and intact w/ some bruising abd- soft, nondistended, mildly tender ASSESSMENT: postop ectopic PLAN: 1. Discussed results of pathology and implications with patient. 2. Postop restrictions reviewed. Recommend take UPT in 2-3 weeks, if + would recommend quants. She is comfortable w/ plan Kristin Mayes MD [facility] History of Present illness Narrative 06-21-2023 Kristin Mayes MD - 06/21/2023 2:50 PM EST Note Date & Type Note Facility 06-21-2023 History of Presen t illness Narrative DATE OF SERVICE: 06/21/2023 PROBLEM: Amadou Payton presents for postop visit. SURGERY & DATE: 06/18/23 laparoscopic left salpingectomy for ectopic PATHOLOGY: Returned consistent with ectopic SUBJECTIVE/INTERVAL HISTORY: Amadou Payton reports that she feels well. No fever or chills. Pain improving daily. Normal appetite. Normal bowel movements and urination. Still having moderate amount of vaginal bleeding about enough to saturate 1 maxi pad a day.. OBJECTIVE: incisions- clean, dry and intact w/ some bruising abd- soft, nondistended, mildly tender ASSESSMENT: postop ectopic PLAN: 1. Discussed results of pathology and implications with patient. 2. Postop restrictions reviewed. Recommend take UPT in 2-3 weeks, if + would recommend quants. She is comfortable w/ plan Kristin Mayes MD documented in this encounter [facility] Progress note 06-18-2023 Note Date & Type Note Facility 06-18-2023 Note HNO ID: [id number] Author: Kristin Mayes MD Service: ? Author Type: Physician Type: Progress Notes Filed: 06/18/2023 9:17 AM Note Text: Left salpingectomy at [facility] on 06/17/23 for ectopic w/ quant > 20,000. Patient d/[facility] same day. Kristin Mayes MD [facility] Evaluation note Note Date & Type Note Facility documented in this encounter [facility] Summary Purpose Family History No Family History Records FoundNo Family History Records FoundNo Family History Records Found Advance Directives No Advanced Directives Records FoundNo Advanced Directives Records FoundNo Advanced Directives Records Found Additional Source Comments INFORMATION SOURCE (unrecogn ized section and content) DATE CREATED AUTHOR AUTHOR'S ORGANIZ ATION 06/24/2023 [facility] DATE CREATED AUTHOR AUTHOR'S ORGANIZ ATION 06/27/2023 [facility] Source Comments (unrecognize d section and content) In the event this informatio n is protected by the Federal Confidentiality of Alcohol and Drug Abuse Patient Records regulations: The Federal rules restrict any use of the information to criminally investigate or prosecute any alcohol or drug abuse patient.[facility] Reason for Visit (unrecogniz ed section and content) FOR RECORDS PERTAINING TO PATIENTS WHO ARE OR HAVE BEEN ENROLLED IN A CHEMICAL DEPENDENCY/SUBSTANCEABUSE PROGRAM, SOME INFORMATION MAY BE OMITTED. This clinical summary was aggregated from multiple sources. Caution should be exercised in using it in the provision of clinical care. This summary normalizes information from multiple sources, and as a consequence, information in this document may materially change the coding, format and clinical context of patient data. In addition, data may be omitted in some cases. CLINICAL DECISIONS SHOULD BE BASED ON THE PRIMARY CLINICAL RECORDS. [email or web address] [facility]. provides no warranty or guarantee of the accuracy or completeness of information in this document.
== END | disposition home or self-care (01) ==
LOC: PSN 07:44
PROVIDERS: PCP Family Medicine; Referring Provider Internal Medicine Cardiovascular Disease; Visit Provider Internal Medicine Cardiovascular Disease
DX: R00.2 Palpitations (principal); R07.89 Other chest pain
CPT/HCPCS: 93225; 93226

== ENCOUNTER → 2023-08-15 | Outpatient (CLI) | payer SELFPAY, OTHER ==
--- NOTE | 2023-08-15 07:58 | ECHOD_ITS ---
Reason For Study: PALPITATIONS Procedure This was a 2D Doppler, Color Flow transthoracic echocardiogram. Left Ventricle Normal LV size. Left ventricular systolic function is normal. The estimated ejection fraction is 60 %. Normal diastololic function. No regional wall motion abnormalities noted. Right Ventricle Normal RV size. Normal systolic function. Atria The left and right atria are normal. Mitral Valve The mitral valve is structurally normal. No prolapse or stenosis seen. Trivial mitral valve insufficiency. Tricuspid Valve Normal tricuspid valve. Trivial tricuspid valve insufficiency. Right ventricular systolic pressure estimated to be 22 mmHg. Aortic Valve Trisinus/trileaflet aortic valve. Pulmonic Valve The pulmonic valve is not well visualized. Great Vessels Normal aortic root. Pericardium/Pleural No pericardial effusion. MMode/2D Measurements & Calculations LVIDd: 5.0 cm IVSd: 0.63 cm Ao root diam: 2.8 cm LVIDs: 3.2 cm LVPWd: 0.71 cm RVDd: 3.6 cm FS: 36.3 % LAV(MOD-bp): 53.9 ml LVAd ap4: 27.5 cm2 LVAd ap2: 30.5 cm2 LAV(MOD-bp) Indexed: 30.2 ml/m2 LVLd ap4: 7.3 cm LVLd ap2: 8.1 cm LAV(MOD-sp2): 44.7 ml EDV(MOD-sp4): 87.0 ml EDV(MOD-sp2): 99.0 ml LAV(MOD-sp4): 44.8 ml EDV(sp4-el): 87.7 ml EDV(sp2-el): 97.8 ml LVAs ap4: 17.1 cm2 LVAs ap2: 16.4 cm2 LVLs ap4: 6.6 cm LVLs ap2: 6.1 cm ESV(MOD-sp4): 39.2 ml ESV(MOD-sp2): 38.7 ml ESV(sp4-el): 37.8 ml ESV(sp2-el): 37.5 ml EF(MOD-sp4): 55.0 % EF(MOD-sp2): 60.9 % EF(sp4-el): 56.8 % SV(MOD-sp4): 47.8 ml SV(MOD-sp2): 60.3 ml SV(sp4-el): 49.8 ml LA dimension(2D): 3.0 cm LA A4 area: 14.2 cm2 RA A4 area: 13.1 cm2 TAPSE: 2.4 cm Time Measurements MV dec time: 0.19 sec Doppler Measurements & Calculations MV E max marek: 76.5 cm/sec Lat Peak E' Marek: 15.3 cm/sec Med Peak E' Marek: 17.7 cm/sec MV A max marek: 49.6 cm/sec E/E' lat: 5.0 E/E' med: 4.3 MV E/A: 1.5 MV V2 max: 83.4 cm/sec MV P1/2t max marek: 83.4 cm/sec Ao V2 max: 115.4 cm/sec MV max P.8 mmHg MV P1/2t: 90.3 msec Ao max P.3 mmHg MV V2 mean: 52.0 cm/sec MV dec slope: 270.6 cm/sec2 Ao V2 mean: 84.7 cm/sec MV mean P.2 mmHg Ao mean P.2 mmHg MV V2 VTI: 24.6 cm MVA(P1/2t): 2.4 cm2 Ao V2 VTI: 26.5 cm AV (velocity ratio): 0.77 LV V1 max: 98.9 cm/sec PA V2 max: 84.0 cm/sec TR max marek: 187.2 cm/sec LV V1 max P.9 mmHg PA V2 mean: 63.1 cm/sec TR max P.0 mmHg LV V1 mean P.2 mmHg LV V1 mean: 68.6 cm/sec LV V1 VTI: 20.5 cm ECHO/Echo Complete Interpretation Summary The estimated ejection fraction is 60 %. Normal diastololic function. Ordering Physician: Taylor Petersen Referring Physician: Stuart Dupont Performed By: Jackelin Madden, RDCS, RVT
--- OUTSIDE RECORDS SUMMARY | 2023-08-15 08:00 | XMS RPT_ITS | CCD ---
Author Name Unknown Address [address] [place] [address] Organization [facility] Care Team Providers Care Roll Icer Name Role Phone Unavailable Primary Care Provider [...] 76.2 kg Kristin Mayes MD Work Phone: [facility] 06-21-2023 14:57-0500 Diastolic blood pressure 72 mm[Hg] Kristin Mayes MD Work Phone: [facility] 06-21-2023 14:57-0500 Systolic blood pressure 122 mm[Hg] Kristin Mayes MD Work Phone: [facility] Encounters Encounter Date Encounter Type Care Provider Facility Start: 06-21-2023 End: 06-21-2023 ambulatory KRISTIN MAYES Facility:[facility] Start: 06-21-2023 End: 06-21-2023 Patient encounter procedure Kristin Mayes MD Work Phone: OB/Gynecology Plan of Treatment Date Care Activity Detail Author Start: 04-05-2023 Influenza vaccination Influenza Vacc ine (#1) [facility] Start: 08-05-2022 Depression Assessment Depression Ass essment [facility] Start: 10-18-2021 HPV Testing HPV Testing [facility] Start: 10-18-2012 Pap Testing Pap Testing [facility] Start: 10-18-2010 Urine microalbumin profile DTa P,Tdap,Td Vaccine (1 - Tdap) [facility] Start: 10-18-2009 Hepatitis C Screening Hepatitis C Sc reening [facility] Start: 10-18-2009 HIV Screening HIV Screening [facility] Start: 04-20-1992 Covid-19 Vaccine (#1) Covid-19 Vacci ne (#1) [facility] Start: 1991 Hepatitis B Vaccine (1 of 3 - 3-dose series) Hepatitis B Vaccine (1 of 3 - 3-dose series) [facility] Payers Date Payer Category Payer Unknown [id number] 2022 Unknown 133 1991 Unknown [id number] Social History Date Type Detail Facility Start: 06-21-2023 Tobacco smoking stat us MNIS Never smoked tobacco [facility] Start: 06-21-2023 Tobacco use and exposure Smoke less tobacco non-user [facility] Start: 06-21-2023 Alcohol intake Lifetime non-d edmond (finding) [facility] Start: 06-21-2023 History of Social function [facility] Start: 06-21-2023 Tobacco use panel [facility] National Score (1-10 0), lower number is lower risk 56 [facility] Start: 1990 Sex Assigned At Not on file [facility] Progress note 06-21-2023 Note Date & Type Note Facility 06-21-2023 Note HNO ID: [id number] Author: Kristin Mayes MD Service: ? Author [...] is comfortable w/ plan Kristin Mayes MD [facility] History of Present illness Narrative 06-21-2023 Kristin [...] Kristin Mayes MD documented in this encounter [facility] Progress note 06-18-2023 Note Date & Type Note Facility 06-18-2023 Note HNO ID: [id number] Author: Kristin Mayes MD Service: ? Author Type: Physician Type: Progress Notes Filed: 06/18/2023 9:17 AM Note Text: Left salpingectomy at [facility] on 06/17/23 for ectopic w/ quant > 20,000. Patient d[facility] same day. Kristin Mayes MD [facility] Evaluation note Note Date & Type Note Facility documented in this encounter [facility] Summary Purpose Family History No Family History Records FoundNo Family History Records FoundNo Family History Records Found Advance Directives No Advanced Directives Records FoundNo Advanced Directives Records FoundNo Advanced Directives Records Found Additional Source Comments INFORMATION SOURCE (unrecogn ized section and content) DATE CREATED AUTHOR AUTHOR'S ORGANIZ ATION 06/24/2023 [facility] DATE CREATED AUTHOR AUTHOR'S ORGANIZ ATION 06/27/2023 [facility] Source Comments (unrecognize d section and content) In the event this informatio n is protected by the Federal Confidentiality of Alcohol and Drug Abuse Patient Records regulations: The Federal rules restrict any use of the information to criminally investigate or prosecute any alcohol or drug abuse patient.[facility] Reason for Visit (unrecogniz ed section and [...] BE BASED ON THE PRIMARY CLINICAL RECORDS. [employer] [facility]. provides no warranty or guarantee of the accuracy or completeness of information in this document.
== END | disposition home or self-care (01) ==
LOC: CVS 07:57
PROVIDERS: PCP Family Medicine; Referring Provider Internal Medicine Cardiovascular Disease; Visit Provider Internal Medicine Cardiovascular Disease
DX: R00.2 Palpitations (principal); R07.89 Other chest pain; R06.02 Shortness of breath; R53.83 Other fatigue; I49.9 Cardiac arrhythmia, unspecified
CPT/HCPCS: 93306